=== PATIENT | female | born 1995 | race Caucasian/White ===

== ENCOUNTER 2020-07-20 21:34 | Inpatient (IN) ==
[2020-07-20] MEDS ORDERED: MoRPHine SULFATE 4 MG/ML 1 ML CARP\\VIAL IV STA (23:41)
[2020-07-20] MEDS ORDERED: KETOROLAC TROMETHAMINE 15 MG/ML VIAL IV STA (23:41)
[2020-07-20] MEDS ORDERED: SODIUM CHLORIDE 0.9% 1000ML 1,000 ML IV ONE (23:41)
--- NOTE | 2020-07-20 23:46 | Emergency Department Note ---
Impression & Plan Calculus of proximal right ureter, Hydronephrosis, right ED Provider Note Name: PHIL GUTIERREZ Age: 24 Sex: F Arrives Via: Walk-In Informant: Patient, Mother ED Provider: Toni Castano MD Chief Complaint: Right Flank pain Impression: Calculus of proximal right ureter Hydronephrosis, Right Medical Decision Makin yr old female with remote history of renal colic many years ago arrives with acute right flank pain after vague on and off flank pain and hematuria for the last few weeks. Quite uncomfortable this evening with history and findings disc ussed pros/cons of emergent CT which she agrees to having done. CT with 1.2 cm right proximal ureteral stone and hydro. There is a very low chance she will pass this without intervention. Labs with good renal function, normal WBC, and UA without any obvious signs of infection. Patient is afebrile and thus I feel infection unlikely at this time. Pain controlled with toradol, morphine. Hospitalist will bring in and urology on board with this. Triage/Nursing Notes reviewed by Me Differentials:Renal colic, UTI, appendicitis, diverticulitis, mesenteric ischemia, aortic pathology, infections, inflammatory bowel disease, PUD, biliary pathology, as well as other pathologies. Vital Signs: reviewed and remarkable for no significant abnormalities Interventions: Saline lock, morphine 4mg iv, toradol 15mg iv, nss bolus Labs:Reviewed and remarkable for blood in urine Imaging:[facility] Radiologist interpretation reviewed by me: "CT ABDOMEN & PELVIS Without Contrast: 1.2 cm stone in the proximal right ureter/UPJ. Moderate right hydronephrosis. Mild right perinephric fat stranding. Small nonobstructive left renal stone. No hydronephrosis or ureteral stone on the left. Normal appendix. No bowel obstruction or inflammation. Intrauterine device in appropriate position. Radiologist: Satinder Pena M.D." Consults:Dr Jan HUGHES Hospitalist. Ken Byrd PA-C Gen Surg/Urology Plan: Disposition:Hospitalization. Condition: Good History of Present Illness:24 yr old female arrives for evaluation of right flank pain. Patient with history of renal stones noted on CT scan 4+ years ago. She notes over the last few weeks she has been having intermittent flank pains a nd was noted to have blood in urine last week during urologist visit. There was a plan to get CT non con as outpatient for further evaluation. Tonight at 7pm patient had rapid onset right flank pain. Radiates and slowly moving to right groin. Associated nausea and dry heaves. No fevers, chills, urinary symptoms, vomiting, syncope, rashes, nor other symptoms. Denies trauma, injury, falls. No medications prior to arrival. Nothing makes better nor worse. No inciting incident. ROS: See above HPI for pertinent positives & negatives. A total of 10 systems reviewed and were otherwise negative. Past Medical History:Remote kidney stones Past Surgical History:None Family History:Healthy Social History:Non smoker, from [place] Medications:Multivitamin Allergies:None Vitals:Blood Pressure: 144/103, Pulse 83, RR 19, T 36.9C, O2 99% on RA Physical Exam: GENERAL: Patient is very uncomfortable appearing and in moderate distress. Writhing on bed holding right flank. EYES: No scleral icterus, unremarkable pupils. ENT: Mucous membranes moist, no nasal congestion. NECK: No masses appreciated, nomeningismus, trachea is midline. RESPIRATORY: No dyspnea. Clear to auscultation and equal bilaterally. No wheeze, no rhonchi. CARDIOVASCULAR: Regular rate and rhythm.No murmurs, rubs, gallops appreciated. GASTROINTESTINAL: Abdomen soft, non-tender, no peritonitis.Bowel sounds positive.No masses appreciated. BACK: No midline tenderness, vague right CVA tenderness EXTREMITIES: Normal motion all extremities, no cyanosis, no edema. NEUROLOGIC: Alert and oriented, no acute motor or sensory deficits, no focal weakness, cranial nerves grossly intact. SKIN: No rash, no jaundice, no diaphoresis. PSYCH: Appropriate GCS: 15 ED Course: Times/Reassessments: vastly improved with pain medications Toni Castano MD Past Med/Surg History Medical History (Updated 07/21/20 @ 03:13 by Toni Castano MD) Nephrolithiasis Social History Smoking Status: Never smoker Second Hand Exposure: No; Hx Alcohol Use: Yes Alcohol type: beer Hx Substance Use: No Preferred Language: Tamazight Food Checker Required: No Beliefs That Will Affect Care: None Current Living Situation Comment: apartment with 1 roomate Feels Safe at Home: Yes Assistive Devices: None Allergies Allergies Allergy/AdvReac Type Severity Reaction Status Date / Time No Known Allergies Allergy Unverified 07/21/20 00:47 Home Meds Home Medications Medication Instructions Recorded Confirmed multivit with min-folic acid 1 tab PO DAILY 07/21/20 07/21/20 [Multivitamin Gummies] Results & Data (ED) Vital Signs Vital Signs - 24 hr 07/20/20 21:44 07/21/20 00:16 Temperature 36.9 C Temperature Source Temporal Artery Scan Pulse Rate 83 Respiratory Rate 19 12 Respiratory Effort / Characteristics Non-Labored Respiratory Depth Normal Blood Pressure 144/103 H Blood Pressure Mean 116 Pulse Oximetry 99 100 Oxygen Delivery Method Room Air Room Air Sepsis Recent Fever Within 48 Hours No Sepsis New/Unexplained Change in Mental Status N/A Sepsis Action Taken by Nursing No Action Required Laboratory Data Result diagrams: 07/21/20 00:06 07/21/20 00:06 Lab Results 07/20/20 07/20/20 07/21/20 Range/Units 23:30 23:30 00:06 WBC 9.27 (4.8-10.8) K/uL RBC 4.76 (4.2-5.4) M/uL Hgb 13.9 (12.0-16.0) g/dL Hct 39.7 (37-47) % MCV 83.4 (80-100) fL MCH 29.2 (25-34) pg MCHC 35.0 (32-36) g/dL RDW Std Deviation 38.3 (36.4-46.3) fL RDW Coeff of Umang 12.6 (11.5-14.5) % Plt Count 239 (130-400) K/uL MPV 8.9 (7.4-10.4) fL Immature Gran % (Auto) 0.2 % Neut % (Auto) 66.2 % Lymph % (Auto) 22.9 % Bergen % (Auto) 9.2 % Eos % (Auto) 1.3 % Baso % (Auto) 0.2 % Neut # (Auto) 6.14 (1.4-6.5) K/uL Lymph # (Auto) 2.12 (1.2-3.4) K/uL Bergen # (Auto) 0.85 H (0.11-0.59) K/uL Eos # (Auto) 0.12 (0-0.5) K/uL Baso # (Auto) 0.02 (0-0.2) K/uL Immature Gran # (Auto) 0.02 (0.00-0.02) K/uL Sodium (136-145) mmol/L Potassium (3.5-5.1) mmol/L Chloride (98-107) mmol/L Carbon Dioxide (21-32) mmol/L Anion Gap (3-11) BUN (7-18) mg/dl Creatinine (0.6-1.2) mg/dl Est Cr Clr Drug Dosing ml/min Est GFR ( Amer) ml/min Est GFR (Non-Af Amer) ml/min BUN/Creatinine Ratio (10-20) Glucose (70-99) mg/dl Calcium (8.5-10.1) mg/dl Total Bilirubin (0.2-1) mg/dl Direct Bilirubin (0-0.2) mg/dl AST (15-37) U/L ALT (12-78) U/L Alkaline Phosphatase (45-117) U/L Total Protein (6.4-8.2) gm/dl Albumin (3.4-5.0) gm/dl Lipase (73-393) U/L Urine Color Yellow Urine Appearance Clear (Clear) Urine pH 7.0 (4.5-7.5) Ur Specific Penrose 1.009 (1.000-1.030) Urine Protein 2+ H (Negative) Urine Glucose (UA) Negative (Negative) Urine Ketones Negative (Negative) Urine Blood 2+ H (Negative) Urine Nitrite Negative (Negative) Urine Bilirubin Negative (Negative) Urine Urobilinogen Negative (Negative) Ur Leukocyte Esterase Negative (Negative) Urine WBC (Auto) 1-5 (0-5) /hpf Urine RBC (Auto) 0-4 (0-4) /hpf U Hyaline Cast (Auto) 1-5 (0-5) /lpf U Epithel Cells (Auto) >30 H (0-5) /lpf Urine Bacteria (Auto) Negative (Negative) Urine Test Negative (Negative) COVID-19 Eval Order SARS-CoV-2 (PCR) (Negative) 07/21/20 07/21/20 07/21/20 Range/Units 00:06 00:12 00:12 WBC (4.8-10.8) K/uL RBC (4.2-5.4) M/uL Hgb (12.0-16.0) g/dL Hct (37-47) % MCV (80-100) fL MCH (25-34) pg MCHC (32-36) g/dL RDW Std Deviation (36.4-46.3) fL RDW Coeff of Umang (11.5-14.5) % Plt Count (130-400) K/uL MPV (7.4-10.4) fL Immature Gran % (Auto) % Neut % (Auto) % Lymph % (Auto) % Bergen % (Auto) % Eos % (Auto) % Baso % (Auto) % Neut # (Auto) (1.4-6.5) K/uL Lymph # (Auto) (1.2-3.4) K/uL Bergen # (Auto) (0.11-0.59) K/uL Eos # (Auto) (0-0.5) K/uL Baso # (Auto) (0-0.2) K/uL Immature Gran # (Auto) (0.00-0.02) K/uL Sodium 139 (136-145) mmol/L Potassium 3.4 L (3.5-5.1) mmol/L Chloride 108 H (98-107) mmol/L Carbon Dioxide 25 (21-32) mmol/L Anion Gap 6.0 (3-11) BUN 12 (7-18) mg/dl Creatinine 0.68 (0.6-1.2) mg/dl Est Cr Clr Drug Dosing 121.5 ml/min Est GFR ( Amer) 143.9 ml/min Est GFR (Non-Af Amer) 124.2 ml/min BUN/Creatinine Ratio 17.2 (10-20) Glucose 99 (70-99) mg/dl Calcium 9.3 (8.5-10.1) mg/dl Total Bilirubin 0.4 (0.2-1) mg/dl Direct Bilirubin 0.1 (0-0.2) mg/dl AST 15 (15-37) U/L ALT 17 (12-78) U/L Alkaline Phosphatase 95 (45-117) U/L Total Protein 6.6 (6.4-8.2) gm/dl Albumin 4.1 (3.4-5.0) gm/dl Lipase 105 (73-393) U/L Urine Color Urine Appearance (Clear) Urine pH (4.5-7.5) Ur Specific Penrose (1.000-1.030) Urine Protein (Negative) Urine Glucose (UA) (Negative) Urine Ketones (Negative) Urine Blood (Negative) Urine Nitrite (Negative) Urine Bilirubin (Negative) Urine Urobilinogen (Negative) Ur Leukocyte Esterase (Negative) Urine WBC (Auto) (0-5) /hpf Urine RBC (Auto) (0-4) /hpf U Hyaline Cast (Auto) (0-5) /lpf U Epithel Cells (Auto) (0-5) /lpf Urine Bacteria (Auto) (Negative) Urine Test (Negative) COVID-19 Eval Order Covid19 at [facility] SARS-CoV-2 (PCR) NEGATIVE (Negative) Administered Medications Ceftriaxone Sodium 1,000 mg/ (Dextrose) 50 mls @ 100 mls/hr IV Q24H XAVIER; Protocol Stop: 07/31/20 02:59 Last Admin: 07/21/20 03:11 Dose: 100 mls/hr Documented by: [id number] Lactated Ringer's (Lr) 1,000 mls @ 100 mls/hr IV .Q10H XAVIER Stop: 07/21/20 22:27 Last Infusion: 07/21/20 03:07 Dose: 0 mls/hr Documented by: [id number] Admin: 07/21/20 02:45 Dose: 100 mls/hr Documented by: [id number] Morphine Sulfate (Morphine Sulfate 4 Mg/Ml 1 Ml Carp\\Vial) 4 mg IV Q3H PRN PRN Reason: Pain (6,7,8,9,10) Stop: 08/04/20 01:27 Last Admin: 07/21/20 01:58 Dose: 4 mg Documented by: [id number] Discontinued Medications Sodium Chloride (Nss 1000ml) 1,000 mls @ 999 mls/hr IV .Q1H1M ONE Stop: 07/21/20 00:41 Last Infusion: 07/21/20 00:58 Dose: 0 mls/hr Documented by: [id number] Admin: 07/21/20 00:08 Dose: 999 mls/hr Documented by: [id number] Ketorolac Tromethamine (Ketorolac Tromethamine 15 Mg/Ml Vial) 15 mg IV NOW STA Stop: 07/20/20 23:42 Last Admin: 07/21/20 00:07 Dose: 15 mg Documented by: [id number] Morphine Sulfate (Morphine Sulfate 4 Mg/Ml 1 Ml Carp\\Vial) 4 mg IV NOW STA Stop: 07/20/20 23:42 Last Admin: 07/21/20 00:07 Dose: 4 mg Documented by: [id number] Discharge Plan Visit Data Chief Complaint: Kidney Stone Stated Complaint: BACK PAIN, KIDNEY STONE ED Provider: Toni Castano Discharge Problem: Calculus of proximal right ureter, Hydronephrosis, right Patient Disposition: Admitted As Inpatient Discharge Instructions Interventions: ED Discharge Assessment Last Done: 07/21/20 02:01
[2020-07-20 23:52] LABS: Pregnancy Test, Urine Negative (Negative)
[2020-07-20 23:55] LABS: Appearance Urine Clear (Clear); Bacteria Urine Automated Negative (Negative); Bilirubin Urine Negative (Negative); Blood Urine 2+ (Negative); Color Urine Yellow; Epithelial Cell Urine Auto >30 /lpf (0-5); Glucose Urine UA Negative (Negative); Ketones Urine Negative (Negative); Leukocyte Esterase Urine Negative (Negative); Nitrite Urine Negative (Negative); Protein Urine 2+ (Negative); RBC Urine Automated 0-4 /hpf (0-4); Specific Gravity Urine 1.009 (1.000-1.030); Urobilinogen Urine Negative (Negative)
[2020-07-21 00:26] LABS: Basophils # (auto) 0.02 K/uL (0-0.2); Basophils % (auto) 0.2 %; Eosinophils # (auto) 0.12 K/uL (0-0.5); Eosinophils % (auto) 1.3 %; Hematocrit (blood only) 39.7 % (37-47); Hemoglobin 13.9 g/dL (12.0-16.0); Immature Granulocytes # (auto) 0.02 K/uL (0.00-0.02); Immature Granulocytes % (auto) 0.2 %; Lymphocytes # (auto) 2.12 K/uL (1.2-3.4); Lymphocytes % (auto) 22.9 %; Mean Corpuscular Hemoglobin 29.2 pg (25-34); Mean Corpuscular Volume 83.4 fL (80-100); Mean Platelet Volume 8.9 fL (7.4-10.4); Monocytes # (auto) 0.85 K/uL (0.11-0.59); Monocytes % (auto) 9.2 %; Neutrophils # (auto) 6.14 K/uL (1.4-6.5); Neutrophils % (auto) 66.2 %; Platelet Count 239 K/uL (130-400); RDW Coefficient of Variation 12.6 % (11.5-14.5); RDW Standard Deviation 38.3 fL (36.4-46.3); Red Blood Count 4.76 M/uL (4.2-5.4); White Blood Count 9.27 K/uL (4.8-10.8)
[2020-07-21 00:43] LABS: Albumin Level 4.1 gm/dl (3.4-5.0); BUN Creatinine Ratio 17.2 (10-20); Bilirubin Direct 0.1 mg/dl (0-0.2); Calcium 9.3 mg/dl (8.5-10.1); Creatinine Clr Calc Pharmacy 121.5 ml/min; Est GFR (African American) 143.9 ml/min; Est GFR (Non-African American) 124.2 ml/min; Potassium 3.4 mmol/L (3.5-5.1)
[2020-07-21 00:46] LABS: Bilirubin,Total 0.4 mg/dl (0.2-1); Total Protein 6.6 gm/dl (6.4-8.2)
[2020-07-21] MEDS ORDERED: MoRPHine SULFATE 2 MG/ML CARP IV PRN (01:28)
[2020-07-21] MEDS ORDERED: MoRPHine SULFATE 4 MG/ML 1 ML CARP\\VIAL IV PRN (01:28)
--- NOTE | 2020-07-21 01:31 | Urology Consultation ---
Date of Consultation July 21, 2020 Assessment & Plan (1) Nephrolithiasis: Patient is being admitted to the hospital medical service. We recommend proceeding as follows: Provide analgesics Provide antiemetics Hydrate with IV fluids Due to perinephric fat stranding antibiotics will be administered. Strain all urine saving any kidney stones for proper lab analysis Keep patient n.p.o. for the present time Due to the size of patient's kidney stone it is unlikely that this will pass on its own. Patient be reassessed early in the morning to determine if cystoscopy will be required this admission with timing of such a procedure to be determined. Recommend utilizing SCDs for DVT prevention and avoiding chemical means due to the possibility of procedural intervention. History of Present Illness Reason for Consultation: Nephrolithiasis History of Present Illness This is a 24-year-old female who presented to the [facility] emergency department secondary to right-sided flank pain. Patient notes that she has a history of a kidney stone several years ago which she is passed spontaneously without any urologic intervention. She is unsure which side her kidney stone was on. She notes with her current presentation she has been having on and off right-sided flank pain for several months. She says that the pain is somewhat relieved with the use of a heating pad however throughout the day she developed some worsening right-sided flank pain with some radiation to her abdomen. She denies any fevers, shakes, chills. She denies any hematuria or dysuria. She did have some nausea without any vomiting. Her current pain does not know any provocative factors and was relieved somewhat with pain medicines that were administered in the emergency department. Because of the worsening nature of the pain she did present to the emergency department for further management In the emergency department the patient did have labs and imaging which I dependently reviewed. A CT scan of the abdomen and pelvis showed that she had a 1.2 cm proximal right kidney stone at the right ureteropelvic junction with moderate right hydronephrosis and some perinephric fat stranding. Labs included a CBC where her white blood cell count, hemoglobin, hematocrit, and platelet count were all within normal range. Chemistry profile showed her sodium was 1 39. Potassium was somewhat low at 3.4. Her BUN and creatinine were both noted to be normal. Urinalysis showed 2+ blood but was negative for nitrites leukocyte Estrace or pyuria. A test was noted to be negative and a Covid test was also noted to be negative. At the time of my exam the patient is resting comfortably in bed. Her pain had largely resolved with the medicine that was administered and she was in no distress. Allergies Allergy/AdvReac Type Severity Reaction Status Date / Time No Known Allergies Allergy Unverified 07/21/20 00:47 Home Medications Medication Instructions Recorded Confirmed Type multivit with min-folic acid 1 tab PO DAILY 07/21/20 07/21/20 History [Multivitamin Gummies] Patient History Medical History (Updated 07/21/20 @ 01:33 by Cory Byrd PA-C) Nephrolithiasis Social History Smoking Status: Never smoker Feels Safe at Home: Yes Review of Systems Constitutional: no fever and no chills Eyes: no diplopia Ear, Nose, Mouth, Throat: no ear pain Respiratory: no cough and no dyspnea Cardiovascular: no chest pain Gastrointestinal: + nausea; no abdominal pain and no vomiting Genitourinary: + flank pain (Right sided); no dysuria, no urinary frequency and no hematuria Musculoskeletal: + back pain (Right flank) Integumentary: no rash Neurologic: no generalized weakness Physical Exam Constitutional: well developed and well nourished; no acute distress Eyes: no conjunctival abnormality Wears glasses ENMT: Ears: no hearing impairment Neck: trachea midline Cardiovascular: Rate/Rhythm: regular rate and regular rhythm Gastrointestinal (Abdomen): Percussion/Palpation: abdomen soft; abdomen nontender Musculoskeletal: No calf tenderness Skin: no rashes, warm and dry Neurologic: moves all extremities Psychiatric: A+Ox3, euthymic affect Genitourinary: + CVA tenderness (Minimal pain on right side with percussion) Results & Data ([facility]) Vital Signs (Past 12 Hours) Vital Signs Temp Pulse Resp BP Pulse Ox 07/21/20 00:16 12 100 07/20/20 21:44 36.9 C 83 19 144/103 H 99 PG Care Time/CCT Total # of Minutes Spent Total Time Spent with Patient: Total time spent is greater than 50% in food service coordinator rdination of care (as documented) at patient's floor/unit and/or counseling patient: Coding Level of Care Code 61012 Inpt Consult Level 5 Diagnoses Nephrolithiasis N20.0
--- NOTE | 2020-07-21 01:33 | History & Physical Report ---
Date of Service July 21, 2020 Assessment & Plan (1) Nephrolithiasis: Patient is a very pleasant 24 year old female with PMHx nephrolithiasis that presents with chief complaint of ongoing lower R back/flank pain since November 2019 that has been progressively worsening until 7PM of day of admission where she states the pain became a 9/10 and made her nauseous. Nephrolithiasis -CT Ab/Pelv noting a 1.2cm stone in the proximal right ureter/UPJ in addition to mild R hydronephrosis and mild R perinephric fat stranding. A nonobstructive small L renal stone was also noted. -Urology consulted in ED, evaluated patient at bedside. Suspect patient will likely need intervention for passing of the stone due to it's size. -Will keep patient NPO -Lr 100ml/hr while NPO -Zofran PRN nausea -Toradol PRN and Morphine PRN for pain -Due to perinephric fat stranding will start Ceftriaxone IV at this time. -Strain all urine Dispo: Med/Surg for pain control, hydration FEN: NPO, LR 100ml/hr DVT: SCDs Code: Full History of Present Illness Chief Complaint: r back pain Primary Care Provider: NO PCP Patient is a very pleasant 24 year old female with PMHx nephrolithiasis that presents with chief complaint of ongoing lower R back/flank pain since November 2019 that has been progressively worsening until 7PM of day of admission where she states the pain became a 9/10 and made her nauseous. She notes that she has been having this ongoing pain since November 2019, however, it was manageable with heat packs and OTC's. She initially thought it was related to her IUD and was evaluated by her OBGYN. She had passed a stone 4 years ago and actually saw her Urologist at that time early last week with plans for having a scan completed, but patient notes her pain was too severe today to wait until then. Currently she notes her pain is a 2/10, but can rise to a 9/10 and comes in waves. She describes the pain as a dull ache into a sharp pain that is located primarily near her R flank and will wrap around to her groin. She otherwise has had some nausea today, but no vomiting. No fever, chills SOB, chest pain, vomiting, diarrhea, headache. Notes last sexual encounter was 3 days ago with her partner of 2 years and has no concerns in regards to STDs. Med Hx: Previous nephrolithiasis Surg Hx: None Soc Hx: No tobacco or illicit drug use. Has 1-2 drinks/week. Allergies Allergy/AdvReac Type Severity Reaction Status Date / Time No Known Allergies Allergy Unverified 07/21/20 00:47 Home Medications Medication Instructions Recorded Confirmed Type multivit with min-folic acid 1 tab PO DAILY 07/21/20 07/21/20 History [Multivitamin Gummies] Past Med/Surg History Medical History (Updated 07/21/20 @ 03:13 by Toni Castano MD) Nephrolithiasis Social History Smoking Status: Never smoker Second Hand Exposure: No; Hx Alcohol Use: Yes Alcohol type: beer Hx Substance Use: No Preferred Language: Portuguese Sales Producer Required: No Beliefs That Will Affect Care: None Current Living Situation Comment: apartment with 1 roomate Feels Safe at Home: Yes Assistive Devices: None Review of Systems Review of Systems: All systems reviewed & are unremarkable except as noted in Subjective Physical Exam Constitutional: WD/WN, vitals as above Eyes: PERRL, conjunctivae normal, anicteric sclerae ENMT: external ear and nose normal, oropharynx normal Neck: trachea midline, no thyromegaly Respiratory: normal respiratory effort, lungs clear to auscultation Gastrointestinal (Abdomen): normal bowel sounds, soft, nontender, no hepatosplenomegaly Musculoskeletal: no cyanosis or clubbing, extremities motor strength 5/5 Skin: no rashes, warm and dry Neurologic: moves all extremities Psychiatric: A+Ox3, euthymic affect Genitourinary: + CVA tenderness (R, minimal at this time ) Results & Data Results & Data ([facility]) Vital Signs (Past 12 Hours) Vital Signs Temp Pulse Resp BP Pulse Ox 07/21/20 00:16 12 100 07/20/20 21:44 36.9 C 83 19 144/103 H 99 Code Status & VTE Plan VTE Prophylaxis Plan VTE Prophylaxis will be ordered: Yes Supervising Physician Co-Signing Physician Notes Patient seen and examined, chart reviewed, case discussed with Dr. Carrion and I agree with his assessment and plan as above. Briefly, patient is a 24yo female presenting with obstructing renal stone On exam she is afebrile, HD stable, NAD Nontoxic in appearance Remainder of exam unremarkable Labs and images reviewed. No leukocytosis UA with hematuria Assessment/Plan: -Pain and nausea control -IVF -Ceftriaxone -Urology consultation appreciated. Will keep NPO for intervention in AM Resident Activity Tracking Resident Involvement: Resident Care Provided Care Provided: Adult Hospital Medicine
--- NOTE | 2020-07-21 01:57 | Billing Data ---
Date of Service July 21, 2020 Coding Level of Care Code 11168 Initial Inpt Care Lvl 2
[2020-07-21] MEDS ORDERED: ONDANSETRON INJ 2 MG/ML 2 ML VIAL IV PRN (02:28)
[2020-07-21] MEDS ORDERED: LACTATED RINGER'S 1,000 ML IV SCH (02:28)
[2020-07-21] MEDS: cefTRIAXone SODIUM 1,000 MG in DEXTROSE 5% 50 ML IV SCH (03:11)
--- NOTE | 2020-07-21 08:28 | Hospitalist Progress Note ---
Date of Service July 21, 2020 Assessment & Plan (1) Nephrolithiasis: Patient is a very pleasant 24 year old female with PMHx nephrolithiasis that presents with chief complaint of ongoing lower R back/flank pain since November 2019 that has been progressively worsening until 7PM of day of admission where she states the pain became a 9/10 and made her nauseous. Nephrolithiasis CT Ab/Pelv noting a 1.2cm stone in the proximal right ureter/UPJ in addition to mild R hydronephrosis and mild R perinephric fat stranding. A nonobstructive small L renal stone was also noted. Urology consulted in ED, evaluated patient at bedside. Suspect patient will likely need intervention for passing of the stone due to it's size. -Urology consulted following recommendations -NPO after midnight for cystoscopy and stent placement scheduled for 07/22 -Lr 100ml/hr while NPO -Zofran PRN nausea -Toradol PRN and Morphine PRN for pain -IV ceftriaxone -Strain all urine Dispo: Med/Surg for pain control, hydration FEN: NPO, LR 100ml/hr DVT: SCDs Code: Full Admission and Anticipated Discharge Date Admission Date: July 21, 2020 Subjective Patient lying in bed this morning in no acute distress. Patient relate a history similar to that described in the H&P. Patient reports her pain has been going on since November, she feels no superficial pain, and is negative CVA tenderness as a result she thought her pain was secondary to an IUD. After evaluation by RESIDENTIAL PROGRAM MANAGER it was determined that her pain was not related to that. She had previously seen a urologist who had scheduled an outpatient CT scan, however her pain acutely worsened resulting in her presentation the emergency department. In the emergency department she was noted to have a 1.2 cm stone and urology was consulted. She did well overnight experiencing minimal pain, currently her pain is well controlled she is tolerating her diet, reports voiding and stooling. Acute concerns relate to upcoming surgical procedure Physical Exam Physical Exam: General: No acute distress HEENT: Normocephalic atraumatic Neck: No significant lymphadenopathy, trachea midline, normal to visual inspection Cardiac: Regular rate and rhythm, normal S1, normal S2, I did not appreciated any significant murmurs rubs or gallops, I did not appreciate any significant pedal edema, No calf tenderness, capillary refill is less than 3 seconds Respiratory: Clear to auscultation bilaterally with symmetrical chest rise, I did not appreciate any significant wheezes, rales, rhonchi, no increased work of breathing GI: Normal bowel sounds, soft, nontender in all 4 quadrants, nondistended MSK: No sensory or motor changes, moves all extremities without issue, extremities are warm and well-perfused Skin: [place], clean, dry, intact. Neuro: Alert and oriented x4 Psych: Calm, cooperative, logical thought process Results & Data Results & Data ([facility]) Vital Signs (Past 12 Hours) Vital Signs Temp Pulse Pulse Pulse Resp BP BP 07/21/20 08:05 36.7 C 75 16 103/66 07/21/20 07:46 36.7 C 72 14 103/63 07/21/20 02:34 36.8 C 73 16 116/74 07/21/20 02:02 97 H 12 125/75 07/21/20 02:01 92 H 14 122/68 07/21/20 00:16 12 07/20/20 21:44 36.9 C 83 19 144/103 H Pulse Ox 07/21/20 08:05 99 07/21/20 07:46 98 07/21/20 02:34 100 07/21/20 02:02 98 07/21/20 02:01 98 07/21/20 00:16 100 07/20/20 21:44 99 Laboratory Results 07/21/20 07/21/20 07/21/20 Range/Units 00:12 00:12 00:06 WBC (4.8-10.8) K/uL RBC (4.2-5.4) M/uL Hgb (12.0-16.0) g/dL Hct (37-47) % MCV (80-100) fL MCH (25-34) pg MCHC (32-36) g/dL RDW Std Deviation (36.4-46.3) fL RDW Coeff of Umang (11.5-14.5) % Plt Count (130-400) K/uL MPV (7.4-10.4) fL Immature Gran % (Auto) % Neut % (Auto) % Lymph % (Auto) % [place] % (Auto) % Eos % (Auto) % Baso % (Auto) % Neut # (Auto) (1.4-6.5) K/uL Lymph # (Auto) (1.2-3.4) K/uL [place] # (Auto) (0.11-0.59) K/uL Eos # (Auto) (0-0.5) K/uL Baso # (Auto) (0-0.2) K/uL Immature Gran # (Auto) (0.00-0.02) K/uL Sodium 139 (136-145) mmol/L Potassium 3.4 L (3.5-5.1) mmol/L Chloride 108 H (98-107) mmol/L Carbon Dioxide 25 (21-32) mmol/L Anion Gap 6.0 (3-11) BUN 12 (7-18) mg/dl Creatinine 0.68 (0.6-1.2) mg/dl Est Cr Clr Drug Dosing 121.5 ml/min Est GFR ( Amer) 143.9 ml/min Est GFR (Non-Af Amer) 124.2 ml/min BUN/Creatinine Ratio 17.2 (10-20) Glucose 99 (70-99) mg/dl Calcium 9.3 (8.5-10.1) mg/dl Total Bilirubin 0.4 (0.2-1) mg/dl Direct Bilirubin 0.1 (0-0.2) mg/dl AST 15 (15-37) U/L ALT 17 (12-78) U/L Alkaline Phosphatase 95 (45-117) U/L Total Protein 6.6 (6.4-8.2) gm/dl Albumin 4.1 (3.4-5.0) gm/dl Lipase 105 (73-393) U/L Urine Color Urine Appearance (Clear) Urine pH (4.5-7.5) Ur Specific [place] (1.000-1.030) Urine Protein (Negative) Urine Glucose (UA) (Negative) Urine Ketones (Negative) Urine Blood (Negative) Urine Nitrite (Negative) Urine Bilirubin (Negative) Urine Urobilinogen (Negative) Ur Leukocyte Esterase (Negative) Urine WBC (Auto) (0-5) /hpf Urine RBC (Auto) (0-4) /hpf U Hyaline Cast (Auto) (0-5) /lpf U Epithel Cells (Auto) (0-5) /lpf Urine Bacteria (Auto) (Negative) Urine Test (Negative) COVID-19 Eval Order Covid19 at [facility] SARS-CoV-2 (PCR) NEGATIVE (Negative) 07/21/20 07/20/20 07/20/20 Range/Units 00:06 23:30 23:30 WBC 9.27 (4.8-10.8) K/uL RBC 4.76 (4.2-5.4) M/uL Hgb 13.9 (12.0-16.0) g/dL Hct 39.7 (37-47) % MCV 83.4 (80-100) fL MCH 29.2 (25-34) pg MCHC 35.0 (32-36) g/dL RDW Std Deviation 38.3 (36.4-46.3) fL RDW Coeff of Umang 12.6 (11.5-14.5) % Plt Count 239 (130-400) K/uL MPV 8.9 (7.4-10.4) fL Immature Gran % (Auto) 0.2 % Neut % (Auto) 66.2 % Lymph % (Auto) 22.9 % [place] % (Auto) 9.2 % Eos % (Auto) 1.3 % Baso % (Auto) 0.2 % Neut # (Auto) 6.14 (1.4-6.5) K/uL Lymph # (Auto) 2.12 (1.2-3.4) K/uL [place] # (Auto) 0.85 H (0.11-0.59) K/uL Eos # (Auto) 0.12 (0-0.5) K/uL Baso # (Auto) 0.02 (0-0.2) K/uL Immature Gran # (Auto) 0.02 (0.00-0.02) K/uL Sodium (136-145) mmol/L Potassium (3.5-5.1) mmol/L Chloride (98-107) mmol/L Carbon Dioxide (21-32) mmol/L Anion Gap (3-11) BUN (7-18) mg/dl Creatinine (0.6-1.2) mg/dl Est Cr Clr Drug Dosing ml/min Est GFR ( Amer) ml/min Est GFR (Non-Af Amer) ml/min BUN/Creatinine Ratio (10-20) Glucose (70-99) mg/dl Calcium (8.5-10.1) mg/dl Total Bilirubin (0.2-1) mg/dl Direct Bilirubin (0-0.2) mg/dl AST (15-37) U/L ALT (12-78) U/L Alkaline Phosphatase (45-117) U/L Total Protein (6.4-8.2) gm/dl Albumin (3.4-5.0) gm/dl Lipase (73-393) U/L Urine Color Yellow Urine Appearance Clear (Clear) Urine pH 7.0 (4.5-7.5) Ur Specific [place] 1.009 (1.000-1.030) Urine Protein 2+ H (Negative) Urine Glucose (UA) Negative (Negative) Urine Ketones Negative (Negative) Urine Blood 2+ H (Negative) Urine Nitrite Negative (Negative) Urine Bilirubin Negative (Negative) Urine Urobilinogen Negative (Negative) Ur Leukocyte Esterase Negative (Negative) Urine WBC (Auto) 1-5 (0-5) /hpf Urine RBC (Auto) 0-4 (0-4) /hpf U Hyaline Cast (Auto) 1-5 (0-5) /lpf U Epithel Cells (Auto) >30 H (0-5) /lpf Urine Bacteria (Auto) Negative (Negative) Urine Test Negative (Negative) COVID-19 Eval Order SARS-CoV-2 (PCR) (Negative) Medications Administered Current Inpatient Medications Ceftriaxone Sodium 1,000 mg/ (Dextrose) 50 mls @ 100 mls/hr IV Q24H XAVIER; Protocol Stop: 07/31/20 02:59 Last Infusion: 07/21/20 03:45 Dose: Infused Documented by: Lactated Ringer's (Lr) 1,000 mls @ 100 mls/hr IV .Q10H XAVIER Stop: 07/21/20 22:27 Last Infusion: 07/21/20 03:45 Dose: 100 mls/hr Documented by: Ketorolac Tromethamine (Ketorolac Tromethamine 15 Mg/Ml Vial) 15 mg IV Q6H PRN PRN Reason: Pain & Pre PT Stop: 07/26/20 01:27 Morphine Sulfate (Morphine Sulfate 2 Mg/Ml Carp) 2 mg IV Q3H PRN PRN Reason: Pain (1,2,3,4,5) & Pre PT Stop: 08/04/20 01:27 Morphine Sulfate (Morphine Sulfate 4 Mg/Ml 1 Ml Carp\Vial) 4 mg IV Q3H PRN PRN Reason: Pain (6,7,8,9,10) Stop: 08/04/20 01:27 Last Admin: 07/21/20 01:58 Dose: 4 mg Documented by: Ondansetron HCl (Ondansetron Inj 2 Mg/Ml 2 Ml Vial) 4 mg IV Q6H PRN PRN Reason: Nausea Stop: 08/20/20 02:27 Resident Activity Tracking Resident Involvement: Resident Care Provided Care Provided: Adult Hospital Medicine
[2020-07-21] MEDS ORDERED: POTASSIUM CHLORIDE CRTAB 20 MEQ TABCR PO SCH (08:30)
--- NOTE | 2020-07-21 08:51 | XRay Report ---
KUB HISTORY: Follow up study in a patient with a right ureteral calculus right ureteral stone COMPARISON: CT abdomen and pelvis 07/20/2020 FINDINGS: Nonobstructive bowel gas pattern. Moderate fecal retention of the right hemicolon. 1.2 cm calculus of the right ureteropelvic junction at the level of L3 is in unchanged positioning. Left nep hrolithiasis measuring up to approximately 5 mm redemonstrated. IUD of the mid pelvis. No pneumoperit oneum or pneumatosis. No fracture. IMPRESSION: 1. Unchanged positioning of the 1.2 cm calculus of the right ureteropelvic junction at the level of L 3. 2. Left nephrolithiasis. ACT 112: Negative or not required by law. The above report was generated using voice recognition software. It may contain grammatical, syntax o r spelling errors. Electronically signed by: Osman Miguel M.D. 07/21/2020 8:50 AM
--- NOTE | 2020-07-21 09:06 | CT Scan Report ---
CT SCAN OF THE ABDOMEN AND PELVIS WITHOUT CONTRAST CLINICAL HISTORY: right flank pain, remote renal colic history COMPARISON STUDY: No previous studies for comparison. TECHNIQUE: CT scan of the abdomen and pelvis was performed from the lung bases to the proximal femurs . Images are reviewed in the axial, sagittal, and coronal planes. IV contrast was not administered fo r this examination. A dose lowering technique was utilized adhering to the principles of ALARA. CT DOSE: 519.11 mGy.cm FINDINGS: Lower chest: The heart is normal in size and configuration, without pericardial effusion. The lung ba ses and pleural spaces are clear. Liver: The unenhanced liver is normal in size, contour, and attenuation. There is no intrahepatic ellyn iary ductal dilatation. Gallbladder: Unremarkable. Spleen: Normal in size and attenuation. Pancreas: Unremarkable. Adrenal glands: Unremarkable. Kidneys: Moderate hydronephrosis is seen on the right with 1.2 cm obstructive calculus within proximal right u reter. 4 mm calculus is seen within left renal pelvis without evidence of hydronephrosis. Distal aspect of r ight and left ureters are not well visualized. Evaluation is limited due to small amount of intra-abd ominal fat and lack of contrast. Bowel: The small bowel and colon are normal in course and caliber. Appendix is not well seen. Moderat e amount of stool is seen within ascending colon. Peritoneum: There is no intraperitoneal free air or abdominal ascites. Vasculature: The abdominal aorta is normal in course and caliber. Adenopathy: No retroperitoneal lymphadenopathy seen. Multiple small mesenteric lymph nodes are seen, measuring less than 1 cm in short axis and considered nonpathological by CT size criteria. Pelvic viscera: Urinary bladder is fluid-filled. Uterus shows normal CT appearance on this nonenhance d exam. Intrauterine device is seen. Skeletal structures: No evidence of degenerative changes. Few punctate sclerotic lesion within the ri ght iliac bone might represent enostosis. IMPRESSION: 1. Bilateral nephrolithiasis, nonobstructive on the left. 1.2 obstructive calculus within proximal r ight ureter associated with moderate hydronephrosis and hydroureter on the right. ACT 112: Negative or not required by law. The above report was generated using voice recognition software. It may contain grammatical, syntax o r spelling errors. Electronically signed by: Luciana Shaikh DO 07/21/2020 9:04 AM
--- NOTE | 2020-07-21 09:49 | Urology Progress Note ---
Date of Service July 21, 2020 Assessment & Plan (1) Hydronephrosis, right: (2) Calculus of proximal right ureter: 24 yo F admitted for right flank pain secondary to 1.2 cm right proximal ureteral calculus and moderate right hydronephrosis. - Afebrile, VSS, creatinine and WBC within normal limits - UA not suggestive of infection, no urine culture collected/pending. On IV Ceftriaxone since admission - Pain is tolerable at this time - KUB today shows good visualization of right proximal ureteral stone - Reviewed and discussed all surgical options including stent placement later today with possible outpatient ESWL on Sunday vs discharge to home with outpatient ESWL if pain is controlled vs ureteroscopy, possible stone treatment, and stent placement tomorrow while inpatient - She elects to proceed with ureteroscopy, possible stone treatment and stent placement tomorrow - will add to OR schedule - Expected clinical course reviewed, all questions answered - Okay to give diet back today and make NPO at NC - discussed with hospital medicine service - Continue prn pain management and supportive care - Please consult our service urgently if patient develops fever >101F, intractable pain or nausea, as this will necessitate urgent surgical intervention. We will continue to monitor closely with primary service. Admission and Anticipated Discharge Date Admission Date: July 21, 2020 Supervising Physician Co-Signing Physician Notes Pt and mother seen and she is comfortable . Answered questions regarding ureteroscopy and laser lithotripsy including risks and post op scenarios . Advised nephrology consult post op for stone prevention Subjective Awake, alert and resting in bed. She continues to have intermittent right flank pain, notes it is worse in the evenings. Reports pain is 4/10 at present. Last utilized pain medication - morphine @0200. Voiding without difficulty, no dysuria or hematuria. Occasional nausea, no vomiting. No fever or chills. Denies family history of stones. She passed a kidney stone in high school. Chart review: Afebrile, VSS, creatinine 0.68, WBC 9.27, Hgb 13.9, on IV Ceftriaxone. She is NPO. No additional concerns today. Review of Systems Constitutional: as per Subjective / HPI Ear, Nose, Mouth, Throat: no problem reported Respiratory: no dyspnea Cardiovascular: no chest pain Gastrointestinal: as per Subjective / HPI Genitourinary: as per Subjective / HPI Musculoskeletal: no problem reported Physical Exam Constitutional: well developed and well nourished; no acute distress and not ill appearing Eyes: no scleral abnormality Neck: normal visual inspection Respiratory: normal respiratory effort and able to speak in complete sentences; no respiratory distress and no labored breathing Cardiovascular: Extremities: no calf tenderness and no pedal edema Gastrointestinal (Abdomen): Inspection/Auscultation: abdomen normal to inspection; abdomen not distended Percussion/Palpation: abdomen soft; abdomen nontender and no guarding Musculoskeletal: Head/Neck/Chest: normocephalic and head atraumatic Skin: no rashes, warm and dry Neurologic: moves all extremities and awake Psychiatric: A+Ox3, euthymic affect Genitourinary: no CVA tenderness Results & Data ([facility]) Vital Signs (Past 12 Hours) Vital Signs Temp Pulse Pulse Pulse Resp BP BP 07/21/20 08:05 36.7 C 75 16 103/66 07/21/20 07:46 36.7 C 72 14 103/63 07/21/20 02:34 36.8 C 73 16 116/74 07/21/20 02:02 97 H 12 125/75 07/21/20 02:01 92 H 14 122/68 07/21/20 00:16 12 Pulse Ox 07/21/20 08:05 99 07/21/20 07:46 98 07/21/20 02:34 100 07/21/20 02:02 98 07/21/20 02:01 98 07/21/20 00:16 100 PG Care Time/CCT Total # of Minutes Spent Total Time Spent with Patient: Total time spent is greater than 50% in coordination of care (as documented) at patient's floor/unit and/or counseling patient: Coding Level of Care Code 11480 Subseq Hosp Care Lvl 2 Diagnoses Hydronephrosis, right N13.30 Calculus of proximal right ureter N20.1
[2020-07-21] MEDS: KETOROLAC TROMETHAMINE 15 MG/ML VIAL IV PRN (18:04)
[2020-07-22] MEDS: LACTATED RINGER'S 1,000 ML IV SCH ×2 (00:27→10:10)
[2020-07-22] MEDS: cefTRIAXone SODIUM 1,000 MG in DEXTROSE 5% 50 ML IV SCH (05:16)
--- NOTE | 2020-07-22 07:26 | Urology Progress Note ---
Date of Service July 22, 2020 Assessment & Plan (1) Hydronephrosis, right: (2) Calculus of proximal right ureter: 24 yo F admitted for right flank pain secondary to 1.2 cm right proximal ureteral calculus and moderate right hydronephrosis. - Afebrile, VSS, no new labs today at time of visit, creatinine and WBC within normal limits on 07/21 - She wishes to proceed with surgical intervention today - Keep NPO for procedure - Continue prn pain management and supportive care - Findings reviewed with Dr. Alfaro. Given her moderate hydronephrosis and pain in the context of an obstructing 1.2 cm right proximal ureteral stone, will proceed with OR for cystoscopy, right ureteronephroscopy, possible stone treatment/stent placement depending on findings. - Risks and benefits to be reviewed with patient by Dr. Alfaro. OR notified. COVID testing and test negative. - Will cover with scheduled IV Ceftriaxone preoperatively. Admission and Anticipated Discharge Date Admission Date: July 21, 2020 Subjective Patient resting in bed. No issues overnight. Offers no complaints at this time. No pain at present. Utilized Ketorolac yesterday evening @1800. Voiding without difficulty. No dysuria or hematuria. No nausea or vomiting. No fever or chills. NPO since midnight. Chart review: Afebrile, VSS, no new labs at time of visit. On IV Ceftriaxone. No additional concerns today. Review of Systems Constitutional: as per Subjective / HPI Respiratory: no dyspnea Cardiovascular: no chest pain Gastrointestinal: as per Subjective / HPI Genitourinary: as per Subjective / HPI Physical Exam Constitutional: well developed and well nourished; no acute distress and not ill appearing Eyes: no scleral abnormality Neck: normal visual inspection Respiratory: normal respiratory effort and able to speak in complete sentences; no respiratory distress and no labored breathing Cardiovascular: Extremities: no pedal edema Gastrointestinal (Abdomen): Inspection/Auscultation: abdomen normal to inspe ction; abdomen not distended Percussion/Palpation: abdomen soft; abdomen nontender and no guarding Musculoskeletal: Head/Neck/Chest: normocephalic and head atraumatic Extremities: extremities normal to inspection Skin: no rashes, warm and dry Neurologic: moves all extremities and awake Psychiatric: A+Ox3, euthymic affect Genitourinary: no CVA tenderness Results & Data ([facility]) Vital Signs (Past 12 Hours) Vital Signs Temp Pulse Resp BP BP Pulse Ox 07/22/20 07:13 36.7 C 73 18 113/73 98 07/21/20 23:00 36.7 C 54 L 16 99/66 L 99 PG Care Time/CCT Total # of Minutes Spent Total Time Spent with Patient: Total time spent is greater than 50% in coordination of care (as documented) at patient's floor/unit and/or counseling patient: Coding Level of Care Code 59106 Subseq Hosp Care Lvl 2 Diagnoses Hydronephrosis, right N13.30 Calculus of proximal right ureter N20.1
--- NOTE | 2020-07-22 07:40 | Hospitalist Progress Note ---
Date of Service July 22, 2020 Assessment & Plan (1) Nephrolithiasis: Patient is a very pleasant 24 year old female with PMHx nephrolithiasis that presents with chief complaint of ongoing lower R back/flank pain since November 2019 that has been progressively worsening until 7PM of day of admission where she states the pain became a 9/10 and made her nauseous. Nephrolithiasis CT Ab/Pelv noting a 1.2cm stone in the proximal right ureter/UPJ in addition to mild R hydronephrosis and mild R perinephric fat stranding. A nonobstructive small L renal stone was also noted. Urology consulted in ED, evaluated patient at bedside. Suspect patient will likely need intervention for passing of the stone due to it's size. -Urology consulted following recommendations -NPO after midnight for cystoscopy and stent placement scheduled for 07/22 -Lr 100ml/hr while NPO -Zofran PRN nausea -Toradol PRN and Morphine PRN for pain -IV ceftriaxone -Strain all urine Dispo: Med/Surg for pain control, hydration FEN: NPO, LR 100ml/hr DVT: SCDs Code: Full Admission and Anticipated Discharge Date Admission Date: July 21, 2020 Results & Data Results & Data ([facility]) Vital Signs (Past 12 Hours) Vital Signs Temp Pulse Resp BP BP Pulse Ox 07/22/20 07:13 36.7 C 73 18 113/73 98 07/21/20 23:00 36.7 C 54 L 16 99/66 L 99
--- NOTE | 2020-07-22 10:39 | Discharge Summary ---
Date of Service July 22, 2020 Admission HPI Per Admitting Provider Patient is a very pleasant 24 year old female with PMHx nephrolithiasis that presents with chief complaint of ongoing lower R back/flank pain since November 2019 that has been progressively worsening until 7PM of day of admission where she states the pain became a 9/10 and made her nauseous. She notes that she has been having this ongoing pain since November 2019, however, it was manageable with heat packs and OTC's. She initially thought it was related to her IUD and was evaluated by her OBGYN. She had passed a stone 4 years ago and actually saw her Urologist at that time early last week with plans for having a scan completed, but patient notes her pain was too severe today to wait until then. Currently she notes her pain is a 2/10, but can rise to a 9/10 and comes in waves. She describes the pain as a dull ache into a sharp pain that is located primarily near her R flank and will wrap around to her groin. She otherwise has had some nausea today, but no vomiting. No fever, chills SOB, chest pain, vomiting, diarrhea, headache. Notes last sexual encounter was 3 days ago with her partner of 2 years and has no concerns in regards to STDs. Med Hx: Previous nephrolithiasis Surg Hx: None Soc Hx: No tobacco or illicit drug use. Has 1-2 drinks/week. Admission Exam Per Admitting Provider Constitutional: WD/WN, vitals as above Eyes: PERRL, conjunctivae normal, anicteric sclerae ENMT: external ear and nose normal, oropharynx normal Neck: trachea midline, no thyromegaly Respiratory: normal respiratory effort, lungs clear to auscultation Gastrointestinal (Abdomen): normal bowel sounds, soft, nontender, no hepatosplenomegaly Musculoskeletal: no cyanosis or clubbing, extremities motor strength 5/5 Skin: no rashes, warm and dry Neurologic: moves all extremities Psychiatric: A+Ox3, euthymic affect Genitourinary: + CVA tenderness (R, minimal at this time ) Principal Diagnosis Nephrolithiasis Discharge Exam General: No acute distress HEENT: Normocephalic atraumatic Neck: No significant lymphadenopathy, trachea midline, normal to visual inspection Cardiac: Regular rate and rhythm, normal S1, normal S2, I did not appreciated any significant murmurs rubs or gallops, I did not appreciate any significant pedal edema, No calf tenderness, capillary refill is less than 3 seconds Respiratory: Clear to auscultation bilaterally with symmetrical chest rise, I did not appreciate any significant wheezes, rales, rhonchi, no increased work of breathing GI: Normal bowel sounds, soft, nontender in all 4 quadrants, nondistended MSK: No sensory or motor changes, moves all extremities without issue, extremities are warm and well-perfused Skin: [place], clean, dry, intact. Neuro: Alert and oriented x4 Psych: Calm, cooperative, logical thought process Discharge Data Allergies Allergy/AdvReac Type Severity Reaction Status Date / Time No Known Allergies Allergy Unverified 07/21/20 00:47 Consultations 07/21/20 00:53 Consult Urology Routine 07/21/20 00:56 ED Decision to Admit Stat Procedures Performed Operation Date: 07/22/20 12:45 <No data on this case meets the specified criteria> Ordered Studies 07/20/20 23:41 CT abd pelvis wo con Urgent 07/22/20 12:45 FL retrograde includes kub Routine Hospital Course (1) Nephrolithiasis: Patient is a very pleasant 24 year old female with PMHx nephrolithiasis that presents with chief complaint of ongoing lower R back/flank pain since November 2019 that has been progressively worsening until 7PM of day of admission where she states the pain became a 9/10 and made her nauseous. Nephrolithiasis CT Ab/Pelv noting a 1.2cm stone in the proximal right ureter/UPJ in addition to mild R hydronephrosis and mild R perinephric fat stranding. A nonobstructive small L renal stone was also noted. Urology consulted in ED, evaluated patient at bedside. Patient was started on ceftriaxone and provided analgesia and monitored for the following day. On 07/22 she underwent successful cystoscopy with stent placement and destruction of the stone. The patient tolerated the procedure well and was subsequently discharged to complete an outpatient regimen of and for analgesia. Total Time Total Time Spent Total Time Spent (In Minutes): 42 Discharge Plan Discharge Items Patient Disposition: Home - Self-Care Reason For Visit: NEPHROLITHIASIS Discharge Diagnosis: Nephrolithiasis Activity: Resume your previous activity Non-emergency contact: Urologist Call non-emergency contact if: you have any medication questions, your pain is worsening and your temperature is above 101.5 Follow-up/Referrals: PCP,NO [Primary Care Provider] - Diet: Regular Addtl Attending Provider Instructions: Care instructions: You were admitted to [facility] for treatment of kidney stones. While in the hospital you were provided pain medication and IV hydration. You were evaluated by urology who felt that required surgery to assist with removal of the stone. You tolerated the surgery well and were subsequently discharged. As we discussed prior to discharge, should the discomfort of the stent become unbearable throughout the weekend, or you feel comfortable, you are free to remove the stents by firmly pulling on the string until the entire stent is removed. On discharge please follow-up with your urologist at your scheduled appointment. Additionally please take the following medications -Keflex (cephalexin) 500 mg 3 times daily. -Take scheduled Tylenol 1 g every 8 hours until follow-up with your urologist or stent removal, take as needed Advil in between Tylenol doses -Take oxybutynin 1 pill/day until follow-up with your urologist or stent removal -Take Pyridium 1 pill every 8 hours as needed for bladder/urinary discomfort, this is the medication that we discussed may turn your secretions red These [facility] on [address]. If you have not had a recent comprehensive physical exam please follow-up with your primary care provider at your earliest convenience. A discharge summary will be sent to your primary care physician to ensure continuity of care. Please bring this discharge summary with you to your next office appointment so that your provider can review it at that time. Follow-up appointments: - Keep all your follow-up appointments as already scheduled. If you cannot make an appointment, notify your provider. - Please call to request a follow-up appointment with your primary care physician within one week of discharge. Please let us know if you are unable to obtain an appointment Medications: - Your medication list has been reviewed and reconciled upon discharge to ensure accuracy and continuity of care. - You are provided with a list of all your current medications at this time. Please review this list closely and make note of any changes. - Please take all of your medications exactly as prescribed. - Tell your primary care provider if you cannot afford your medications. - Call your primary care provider if you are having any side effects or any other problems. - Call your primary care provider before taking any over the counter medications or supplements, including herbals and vitamins, because some of these may interact with your current medications and/or make your symptoms worse. Symptoms: Please call your primary care provider for symptoms including, but not limited to: fevers (temperatures greater than 100.4), chills, intractable nausea or vomiting, diarrhea, rash, shortness of breath, bleeding, pain, or if you experience any worsening of the symptoms that brought you to the hospital. For EMERGENCY and VERY SERIOUS health-related issues, such as chest pain, shortness of breath, or sudden onset of the symptoms that brought you to the hospital, you may need to call 911 or go directly to the Emergency Room It has been our privilege to take care of you during your hospital stay. And Above All Else Feel Better! Best Wishes, Adam Montoya MD PGY2 Resident, Family & Community Medicine [facility] Residency at [facility] - [address], [address] : [place] [address] Pending Studies at Discharge: No Stand-Alone Forms: My [facility], Smoking Cessation Medications and DC Order Prescriptions: New phenazopyridine [Pyridium] 200 mg tablet 200 mg PO Q8H PRN (Reason: pain) 7 Days Qty: 21 RF: 0 oxybutynin chloride 5 mg tablet extended release 24hr 5 mg PO DAILY Qty: 7 RF: 0 cephalexin 500 mg capsule 500 mg PO TID 4 Days Qty: 12 RF: 0 Continued Multivitamin Gummies 200 mcg Tablet,Chewable 1 tab PO DAILY RF: 0 No Action ketorolac 10 mg tablet 10 mg PO .BID PRN (Reason: pain) 5 Days Qty: 10 RF: 0 Discharge Orders: Discharge Order (Routine); Ordered 07/22/20 Ordered By: Adam Belcher/Other Patient Handouts: Having a Ureteral Stent, Understanding Kidney Stones, Identifying Kidney Stones Admission Data Admit Date/Time: 07/21/20 01:28 Attending Provider: Patsy Rm Admit Provider: Kendrick Carrion Primary Care Provider: PCP,NO Other Providers: Joe Alfaro ; Sarah Montoya Other Interventions: Discharge Summary Assessment (RN) Last Done: 07/22/20 18:25 Supervising Physician Co-Signing Physician Notes Resident Physician Supervision Note: I independently interviewed and examined the patient and verified the lynch history and physical, reviewed labs and image studies and agree with resident Dr. Montoya findings and care plan. Resident Activity Tracking Resident Involvement: Resident Care Provided Care Provided: Adult [facility] Medicine
[2020-07-22] MEDS ORDERED: LIDOCAINE 2% 2 ML VIAL/AMP(20MG/ML) INFIL ONE (13:34)
[2020-07-22] MEDS ORDERED: PROPOFOL IV EMULSION 10 MG/ML 20 ML VIAL IV ONE (13:34)
[2020-07-22] MEDS ORDERED: ONDANSETRON INJ 2 MG/ML 2 ML VIAL ONE (13:34)
[2020-07-22] MEDS ORDERED: DEXAMETHASONE SOD INJ 4 MG/ML VIAL ONE (13:34)
[2020-07-22] MEDS ORDERED: MIDAZOLAM HCL 1 MG/ML 2ML VIAL ONE (13:35)
[2020-07-22] MEDS ORDERED: fentaNYL citrate 100 MCG/2 ML VIAL ONE (13:35)
--- NOTE | 2020-07-22 13:52 | Anesthesiology Consultation ---
Date of Service July 22, 2020 Assessment & Plan (1) Encounter for pre-operative examination: Chart Review Chart Review: Acceptable Risk for Surgery History Surgery Operation Date: 07/22/20 12:45 Proposed Procedures p Cystoscopy, Right Ureteroscopy, Possible Laser Lithotripsy, Right Stent Placement - Joe Alfaro MD Height/Weight Height: 5 ft 6 in Weight: 61.2 kg Allergies Allergy/AdvReac Type Severity Reaction Status Date / Time No Known Allergies Allergy Unverified 07/21/20 00:47 Medications Home Medications Medication Instructions Recorded Confirmed Last Taken multivit with min-folic acid 1 tab PO DAILY 07/21/20 07/21/20 07/20/20 [Multivitamin Gummies] Active Medications Generic Name Dose Route Start Last Admin Trade Name Freq PRN Reason Stop Dose Admin Ceftriaxone Sodium 1,000 mg/ 50 mls @ 100 mls/hr 07/21/20 03:00 07/22/20 05:49 Dextrose IV 07/31/20 02:59 Infused Q24H XAVIER Infusion Protocol Lactated Ringer's 1,000 mls @ 100 mls/hr 07/21/20 23:55 07/22/20 10:10 Lr IV 08/20/20 23:54 100 mls/hr .Q10H XAVIER Administration Ketorolac Tromethamine 15 mg 07/21/20 01:28 07/21/20 18:04 Ketorolac Tromethamine 15 Mg/Ml Vial IV 07/26/20 01:27 15 mg Q6H PRN Administration Pain & Pre PT Morphine Sulfate 4 mg 07/21/20 01:28 07/21/20 01:58 Morphine Sulfate 4 Mg/Ml 1 Ml Carp\Vial IV 08/04/20 01:27 4 mg Q3H PRN Administration Pain (6,7,8,9,10) NPO Date Last Intake of Fluids: 07/21/20 Time Last Intake of Fluids: 21:00 Last Intake of Fluids Comment: prior to midnight. Date Last Intake of Solids: 07/21/20 Time Last Intake of Solids: 20:00 Last Intake of Solids Comment: prior to midnight. Past Medical History Medical History (Updated 07/22/20 @ 13:52 by Cristóbal Ryan MD) Nephrolithiasis No significant medical problems Past Surgical History Surgical History (Updated 07/22/20 @ 13:52 by Cristóbal Ryan MD) No significant past surgical history Social History Smoking Status: Never smoker Do You Dip or Chew Tobacco: No Hx Alcohol Use: Yes Alcohol type: beer alcohol intake frequency: a few times a week Hx Substance Use: No Physical Exam Vital Signs Last Vital Signs Temp 37.3 C 07/22/20 13:35 Pulse 72 07/22/20 13:35 Resp 20 07/22/20 13:35 BP 121/61 07/22/20 13:35 Pulse Ox 98 07/22/20 13:35 Testing Laboratory Results 07/21/20 00:06 07/21/20 00:06 Urine Color Yellow 07/20/20 23:30 Urine Appearance Clear (Clear) 07/20/20 23:30 Urine pH 7.0 (4.5-7.5) 07/20/20 23:30 Ur Specific [place] 1.009 (1.000-1.030) 07/20/20 23:30 Urine Protein 2+ (Negative) H 07/20/20 23:30 Urine Glucose (UA) Negative (Negative) 07/20/20 23:30 Urine Ketones Negative (Negative) 07/20/20 23:30 Urine Nitrite Negative (Negative) 07/20/20 23:30 Ur Leukocyte Esterase Negative (Negative) 07/20/20 23:30 Urine WBC (Auto) 1-5 /hpf (0-5) 07/20/20 23:30 Urine RBC (Auto) 0-4 /hpf (0-4) 07/20/20 23:30 U Hyaline Cast (Auto) 1-5 /lpf (0-5) 07/20/20 23:30 U Epithel Cells (Auto) >30 /lpf (0-5) H 07/20/20 23:30 Urine Bacteria (Auto) Negative (Negative) 07/20/20 23:30 Urine Test Negative (Negative) 07/20/20 23:30 07/20/20 23:30 Urine Test Negative
[2020-07-22] MEDS ORDERED: PROMETHAZINE HCL 6.25 MG in SODIUM CHLORIDE 0.9% 50 ML IV PRN (13:53)
[2020-07-22] MEDS ORDERED: ONDANSETRON INJ 2 MG/ML 2 ML VIAL IV PRN (13:53)
[2020-07-22] MEDS ORDERED: ATROPINE SULFATE 0.1 MG/ML 10ML SYR IV PRN (13:53)
[2020-07-22] MEDS ORDERED: fentaNYL citrate 100 MCG/2 ML VIAL IV PRN (13:53)
--- NOTE | 2020-07-22 14:01 | History & Physical Bridge Note ---
Date of Service July 22, 2020 History & Physical Bridge Note I have examined the patient, reviewed the History & Physical and in the interval since the performance of the History & Physical I have noted the following changes of clinical significance: no changes noted
--- NOTE | 2020-07-22 15:15 | Operative Report ---
PG Post Operative Report Pre & Post Diagnosis Operation Date: 07/22/20 12:45 Pre-Op Diagnosis: Nephrolithiasis Post-Op Diagnosis: Nephrolithiasis I identified the patient and participated in the time-out.: Yes Procedure Operation Date: 07/22/20 12:45 Actual Procedures p Cystoscopy, Right Ureteroscopy, Laser Lithotripsy, Right Stent Placement(Right) - Joe Alfaro MD Surgeon Chester Alfaro MD Sap Analyst none Estimated Blood Loss 0 Findings Consistent with Post-Op Diagnosis Specimens none Description of Procedure The patient was identified in the preoperative holding area, appropriate informed consents were reviewed and completed and the patient was transferred to the operative suite. Upon arrival, appropriate antibiotics and anesthesia were administered and the patient was placed in dorsal lithotomy position and prepped and draped in sterile fashion. To begin the case I passed a 22 [place] cystoscope with 30 degree lens. Inspection of the bladder was unremarkable. She had ureteral orifices in orthotopic position and no other mucosal abnormalities. Turned my attention of the right UO and cannulated with a sensor wire and a 10 [place] double-lumen catheter. I then advanced a second wire into the kidney. There was a large opacity in the area of the proximal ureter consistent with her preoperative imaging and stone. I then exchanged the 10 [place] double-lumen catheter for a flexible ureteroscope and performed a full renoscopy. There was a yellow appearing calculus in the midpole of the kidney that was subsequently pushed into a posterior calyx and treated utilizing a 272 m fiber. The stone fragmented into small pieces without difficulty. I completed a repeat renoscopy identifying no large retained fragments before careful exit ureteroscopy revealed a healthy-appearing ureter. I placed a 6 [place] by 24 cm double-J ureteral stent seeing a good curl in the kidney as well as the bladder. A string was left attached to the distal aspect of the stent. She was extubated and taken to the PACU in stable condition. There were no complications. I attest to the content of the Intraoperative Record and any orders documented therein. Any exceptions are noted below.
--- NOTE | 2020-07-22 15:25 | Fluoroscopy Report ---
FL KUB CLINICAL HISTORY: RETROGRADE PYELOGRAM COMPARISON STUDY: None. FLUOROSCOPY TIME: 4.5 seconds. A single fluoroscopic spot image of the abdomen. FINDINGS: Fluoroscopy provided for right ureteral stent placement. Only the proximal portion of the s tent is identified and appears in good position. IMPRESSION: Fluoroscopy provided for right ureteral stent placement. ACT 112: Negative or not required by law. Electronically signed by: Junior Felix M.D. 07/22/2020 3:23 PM
--- NOTE | 2020-07-22 15:37 | Anesthesiology Progress Note ---
Date of Service July 22, 2020 Anesthesia Post Procedure Vital Signs Vital Signs: Temp Pulse Pulse Resp BP BP Pulse Ox 07/22/20 15:30 97.5 F L 62 18 119/72 100 07/22/20 15:20 59 L 18 119/75 100 07/22/20 15:14 97.2 F L 70 18 123/72 98 07/22/20 13:35 99.1 F 72 20 121/61 98 07/22/20 07:13 98.1 F 73 18 113/73 98 07/21/20 23:00 98.1 F 54 L 16 99/66 L 99 Pain Intensity Bilateral Abdomen: Pain Intensity: 6 Transfer of Care Handoff Completed per policy Notes Mental Status: alert / awake / arousable and participated in evaluation Patient Amnestic to Procedure: Yes Nausea / Vomiting: adequately controlled Pain: adequately controlled Airway Patency, RR, SpO2: stable & adequate BP & HR: stable & adequate Hydration State: stable & adequate Anesthetic Complications: no major complications apparent and Pt Satisfied with anesthetic care
[2020-07-22] MEDS: KETOROLAC TROMETHAMINE 15 MG/ML VIAL IV PRN (15:55)
[2020-07-22] MEDS ORDERED: PHENAZOPYRIDINE HCL 200 MG TAB PO PRN (16:05)
== END 2020-07-22 18:51 | disposition home or self-care (01) | DRG 661 ==
LOC: ED 21:34 → 3E 07-21 01:28 → SUATTDRO 07-21 01:28 → 3E 07-21 02:01

== ENCOUNTER 2020-07-25 04:29 | Observation (INO) ==
[2020-07-25] MEDS ORDERED: SODIUM CHLORIDE 0.9% 1000ML 1,000 ML IV STA (04:35)
[2020-07-25] MEDS ORDERED: KETOROLAC TROMETHAMINE 15 MG/ML VIAL IV STA (04:35)
[2020-07-25] MEDS ORDERED: MoRPHine SULFATE 4 MG/ML 1 ML CARP\\VIAL IV STA (04:42)
[2020-07-25] MEDS ORDERED: ONDANSETRON INJ 2 MG/ML 2 ML VIAL IV STA (04:42)
--- NOTE | 2020-07-25 04:45 | Emergency Department Note ---
History of Present Illness General Chief complaint: Flank Pain Stated complaint: RT FLANK PAIN Time Seen by Provider: 07/25/20 04:35 History of Present Illness Maximum Pain Intensity: 10 This 24-year-old presents to the ER complaining of worsening right flank pain who had lithotripsy done the other day by Dr. Alfaro Location: Right flank Quality: Sharp Severity: Moderate Duration: Today Timing: Today Context: Pain got worse and patient came in Modifying factors: better with nothing; worse with nothing Patient took Toradol yesterday and Tylenol tonight. The pain is worse. Patient denies chest pain, dyspnea, fevers, flulike illness. She is on Pyridium Keflex Zofran and Toradol. Home Medications Medication Instructions Recorded Confirmed Type Multivitamin Gummies 1 tab PO DAILY 07/21/20 07/25/20 History cephalexin 500 mg PO TID 4 Days #12 cap 07/22/20 07/25/20 Rx oxybutynin chloride 5 mg PO DAILY #7 tab 07/22/20 07/25/20 Rx phenazopyridine [Pyridium] 200 mg PO Q8H PRN 7 Days #21 tab 07/22/20 07/25/20 Rx acetaminophen [Tylenol Extra 1,000 mg PO Q6H PRN 07/25/20 07/25/20 History Strength] ketorolac 10 mg PO BID PRN 07/25/20 07/25/20 History levonorgestrel [Mirena] 20 mcg INTRAUTERINE CONT 07/25/20 07/25/20 History Allergies Allergy/AdvReac Type Severity Reaction Status Date / Time No Known Allergies Allergy Unverified 07/25/20 07:00 Past Med/Surg History Medical History Hydronephrosis, right Surgical History History of lithotripsy Social History Smoking Status: Never smoker Second Hand Exposure: No; Hx Alcohol Use: Yes Alcohol type: beer Hx Substance Use: No Preferred Language: Tajik Communication Ability: Effective 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 Feels Safe at Home: Yes Assistive Devices: Glasses Review of Systems A total of 10 systems reviewed and were otherwise negative Physical Exam Vital Signs Vital Signs - 24 hr 07/25/20 04:31 07/25/20 05:00 07/25/20 05:01 Temperature 36.8 C Temperature Source Oral Pulse Rate 98 H 54 L 64 Pulse Rate from SpO2 Sensor 54 L 70 Pulse Rhythm Regular Pulse Strength Normal Respiratory Rate 18 22 17 Respiratory Effort / Characteristics Non-Labored Respiratory Depth Normal Respiratory Pattern Regular Blood Pressure 143/75 H 122/80 Blood Pressure Mean 97 94 Blood Pressure Position Lying Pulse Oximetry 98 97 95 Oxygen Delivery Method Room Air Sepsis Recent Fever Within 48 Hours No Sepsis New/Unexplained Change in Mental Status N/A Sepsis Action Taken by Nursing No Action Required 07/25/20 05:05 07/25/20 06:10 Temperature Temperature Source Pulse Rate 54 L Pulse Rate from SpO2 Sensor 54 L Pulse Rhythm Pulse Strength Respiratory Rate 17 Respiratory Effort / Characteristics Respiratory Depth Respiratory Pattern Blood Pressure 133/83 Blood Pressure Mean 99 Blood Pressure Position Pulse Oximetry 96 Oxygen Delivery Method Room Air Sepsis Recent Fever Within 48 Hours Sepsis New/Unexplained Change in Mental Status Sepsis Action Taken by Nursing VITALS: Vitals are noted on the nurse's note and reviewed by myself. Vital signs stable. GENERAL: White female who appears in pain, in no acute distress, nondiaphoretic, well-developed well-nourished. SKIN: Capillary reflex less than 2 seconds. HEENT: Normocephalic. PERRLA. EOMI. Nares patent. Mucous membranes moist. Neck is supple without nuchal rigidity. HEART: Regular rate and rhythm without murmurs gallops or rubs. LUNGS: Clear to auscultation bilaterally without wheezes, rales or rhonchi. No retractions or accessory muscle use. ABDOMEN: Positive bowel sounds x 4. Normal tympanic percussion. Soft, nontender, without masses or organomegaly. Cunha sign negative. No guarding or rebound tenderness. No CVA tenderness MUSCULOSKELETAL: No gross musculoskeletal defects. NEURO: Patient was alert and oriented to person place and time. No focal neurological deficits. Course Administered Medications Bisacodyl (Bisacodyl 10 Mg Supp) 10 mg MS DAILY PRN PRN Reason: Constipation Stop: 08/24/20 10:53 Last Admin: 07/25/20 18:24 Dose: 10 mg Documented by: [id number] Docusate Sodium (Docusate Sodium 100 Mg Cap) 100 mg PO BID PRN PRN Reason: Constipation Stop: 08/24/20 10:53 Last Admin: 07/25/20 21:49 Dose: 100 mg Documented by: [id number] Lactated Ringer's (Lr) 1,000 mls @ 125 mls/hr IV .Q8H XAVIER Stop: 07/26/20 10:53 Last Admin: 07/25/20 20:42 Dose: 125 mls/hr Documented by: [id number] Infusion: 07/25/20 19:40 Dose: 0 mls/hr Documented by: [id number] Admin: 07/25/20 11:27 Dose: 125 mls/hr Documented by: [id number] Ketorolac Tromethamine (Ketorolac Tromethamine 15 Mg/Ml Vial) 15 mg IV Q6H PRN PRN Reason: Pain Stop: 07/30/20 10:53 Last Admin: 07/25/20 18:24 Dose: 15 mg Documented by: [id number] Admin: 07/25/20 11:26 Dose: 15 mg Documented by: [id number] Oxybutynin Chloride (Oxybutynin Chloride 5 Mg Tab) 5 mg PO DAILY XAVIER Stop: 08/24/20 10:53 Last Admin: 07/25/20 18:57 Dose: Not Given Documented by: [id number] Polyethylene Glycol (Polyethylene (Miralax) 17 Gm Pack) 17 gm PO DAILY XAVIER Stop: 08/24/20 12:59 Last Admin: 07/25/20 14:46 Dose: 17 gm Documented by: [id number] Senna/Docusate Sodium (Docusate Sodium/Senna 50/8.6mg Tab) 2 tab PO QAM XAVIER Stop: 08/24/20 11:44 Last Admin: 07/25/20 12:07 Dose: 2 tab Documented by: [id number] Discontinued Medications Sodium Chloride (Nss 1000ml) 1,000 mls @ 999 mls/hr IV .Q1H1M STA Stop: 07/25/20 05:35 Last Infusion: 07/25/20 05:53 Dose: 0 mls/hr Documented by: [id number] Admin: 07/25/20 04:57 Dose: 999 mls/hr Documented by: [id number] Ceftriaxone Sodium (Rocephin) 1,000 mg in 50 mls @ 100 mls/hr IV NOW STA Stop: 07/25/20 06:11 Last Infusion: 07/25/20 11:11 Dose: 0 mls/hr Documented by: [id number] Admin: 07/25/20 06:09 Dose: 100 mls/hr Documented by: [id number] Sodium Chloride (Nss 1000ml) 1,000 mls @ 999 mls/hr IV .Q1H1M ONE Stop: 07/25/20 20:23 Last Infusion: 07/25/20 20:42 Dose: 0 mls/hr Documented by: [id number] Admin: 07/25/20 19:40 Dose: 999 mls/hr Documented by: [id number] Ketorolac Tromethamine (Ketorolac Tromethamine 15 Mg/Ml Vial) 10 mg IV NOW STA Stop: 07/25/20 04:36 Last Admin: 07/25/20 04:55 Dose: 10 mg Documented by: [id number] Magnesium Citrate (Magnesium Citrate 296 Ml/Btl) 148 ml PO TODAY@2044 ONE Stop: 07/25/20 20:46 Last Admin: 07/25/20 20:42 Dose: 148 ml Documented by: [id number] Morphine Sulfate (Morphine Sulfate 4 Mg/Ml 1 Ml Carp\Vial) 4 mg IV NOW STA Stop: 07/25/20 04:43 Last Admin: 07/25/20 04:55 Dose: 4 mg Documented by: [id number] Morphine Sulfate (Morphine Sulfate 2 Mg/Ml Carp) 2 mg IV NOW STA Stop: 07/25/20 06:23 Last Admin: 07/25/20 11:10 Dose: Not Given Documented by: [id number] Ondansetron HCl (Ondansetron Inj 2 Mg/Ml 2 Ml Vial) 4 mg IV NOW STA Stop: 07/25/20 04:43 Last Admin: 07/25/20 04:56 Dose: 4 mg Documented by: [id number] Medical Decision Making Medical Records Attestation: I reviewed the patient's medical records. Home Medications Current Medication List: was personally reviewed by me Laboratory Data Attestation: I reviewed the patient's lab results. Result diagrams: 07/25/20 04:55 07/25/20 04:55 Lab Results 07/25/20 07/25/20 07/25/20 Range/Units 04:55 04:55 04:55 WBC 10.01 (4.8-10.8) K/uL RBC 4.68 (4.2-5.4) M/uL Hgb 13.5 (12.0-16.0) g/dL Hct 38.1 (37-47) % MCV 81.4 (80-100) fL MCH 28.8 (25-34) pg MCHC 35.4 (32-36) g/dL RDW Std Deviation 36.6 (36.4-46.3) fL RDW Coeff of Umang 12.4 (11.5-14.5) % Plt Count 234 (130-400) K/uL MPV 8.8 (7.4-10.4) fL Immature Gran % (Auto) 0.2 % Neut % (Auto) 65.2 % Lymph % (Auto) 20.8 % [place] % (Auto) 11.4 % Eos % (Auto) 2.2 % Baso % (Auto) 0.2 % Neut # (Auto) 6.53 H (1.4-6.5) K/uL Lymph # (Auto) 2.08 (1.2-3.4) K/uL [place] # (Auto) 1.14 H (0.11-0.59) K/uL Eos # (Auto) 0.22 (0-0.5) K/uL Baso # (Auto) 0.02 (0-0.2) K/uL Immature Gran # (Auto) 0.02 (0.00-0.02) K/uL Sodium 141 (136-145) mmol/L Potassium 3.6 (3.5-5.1) mmol/L Chloride 111 H (98-107) mmol/L Carbon Dioxide 24 (21-32) mmol/L Anion Gap 6.0 (3-11) BUN 8 (7-18) mg/dl Creatinine 0.72 (0.6-1.2) mg/dl Est Cr Clr Drug Dosing 114.7 ml/min Est GFR ( Amer) 137.8 ml/min Est GFR (Non-Af Amer) 118.9 ml/min BUN/Creatinine Ratio 10.9 (10-20) Glucose 92 (70-99) mg/dl Calcium 8.7 (8.5-10.1) mg/dl Total Bilirubin 0.4 (0.2-1) mg/dl AST 17 (15-37) U/L ALT 22 (12-78) U/L Alkaline Phosphatase 81 (45-117) U/L Total Protein 6.8 (6.4-8.2) gm/dl Albumin 3.9 (3.4-5.0) gm/dl Globulin 2.9 (2.5-4.0) gm/dl Albumin/Globulin Ratio 1.3 (0.9-2) HCG, Qual Negative (Negative) Urine Color Urine Appearance (Clear) Urine pH (4.5-7.5) Ur Specific [place] (1.000-1.030) Urine Protein (Negative) Urine Glucose (UA) (Negative) Urine Ketones (Negative) Urine Blood (Negative) Urine Nitrite (Negative) Urine Bilirubin (Negative) Urine Urobilinogen (Negative) Ur Leukocyte Esterase (Negative) Urine RBC (0-4) /hpf Urine WBC (0-5) /hpf Ur Epithelial Cells (0-5) /lpf Urine Bacteria (Negative) COVID-19 Eval Order SARS-CoV-2 (PCR) (Negative) 07/25/20 07/25/20 07/25/20 Range/Units 04:55 06:05 06:05 WBC (4.8-10.8) K/uL RBC (4.2-5.4) M/uL Hgb (12.0-16.0) g/dL Hct (37-47) % MCV (80-100) fL MCH (25-34) pg MCHC (32-36) g/dL RDW Std Deviation (36.4-46.3) fL RDW Coeff of Umang (11.5-14.5) % Plt Count (130-400) K/uL MPV (7.4-10.4) fL Immature Gran % (Auto) % Neut % (Auto) % Lymph % (Auto) % [place] % (Auto) % Eos % (Auto) % Baso % (Auto) % Neut # (Auto) (1.4-6.5) K/uL Lymph # (Auto) (1.2-3.4) K/uL [place] # (Auto) (0.11-0.59) K/uL Eos # (Auto) (0-0.5) K/uL Baso # (Auto) (0-0.2) K/uL Immature Gran # (Auto) (0.00-0.02) K/uL Sodium (136-145) mmol/L Potassium (3.5-5.1) mmol/L Chloride (98-107) mmol/L Carbon Dioxide (21-32) mmol/L Anion Gap (3-11) BUN (7-18) mg/dl Creatinine (0.6-1.2) mg/dl Est Cr Clr Drug Dosing ml/min Est GFR ( Amer) ml/min Est GFR (Non-Af Amer) ml/min BUN/Creatinine Ratio (10-20) Glucose (70-99) mg/dl Calcium (8.5-10.1) mg/dl Total Bilirubin (0.2-1) mg/dl AST (15-37) U/L ALT (12-78) U/L Alkaline Phosphatase (45-117) U/L Total Protein (6.4-8.2) gm/dl Albumin (3.4-5.0) gm/dl Globulin (2.5-4.0) gm/dl Albumin/Globulin Ratio (0.9-2) HCG, Qual (Negative) Urine Color Brown Urine Appearance Turbid A (Clear) Urine pH (4.5-7.5) Ur Specific [place] 1.012 (1.000-1.030) Urine Protein (Negative) Urine Glucose (UA) (Negative) Urine Ketones (Negative) Urine Blood (Negative) Urine Nitrite (Negative) Urine Bilirubin (Negative) Urine Urobilinogen (Negative) Ur Leukocyte Esterase (Negative) Urine RBC >30 H (0-4) /hpf Urine WBC 10-30 H (0-5) /hpf Ur Epithelial Cells 10-20 H (0-5) /lpf Urine Bacteria 1+ H (Negative) COVID-19 Eval Order Covid19 at [facility] SARS-CoV-2 (PCR) NEGATIVE (Negative) Imaging Data Attestation: I personally reviewed and interpreted this imaging study as follows: MDM Narrative Prior records/ancillary studies reviewed. Triage Nursing notes reviewed. Additional history obtained from the family. The patient's history was concerning for right flank pain. Differential diagnosis: Etiologies such as renal colic, appendicitis, diverticulitis, mesenteric ischemia, aortic pathology, infections, inflammatory bowel disease, PUD, biliary pathology, UTI, as well as others were entertained. Physical examination findings: As above. ER treatment provided: Toradol morphine Zofran IV fluids, Rocephin On reassessment the patient felt better. Diagnostic interpretation by me: The labs revealed stable H&H. Urinalysis revealed concerns for possible infection and a urine culture was sent. No prior urine culture Imaging studies: reviewed Consultation: A consultation was placed with the hospitalist. The case was discussed and diagnostics were reviewed. The patient was evaluated in the ER for further treatment. It appears that the patient has isolated renal colic from a right sided stone. Patient still in moderate amount of pain. Medicine was consulted. She will be evaluated for admission. By the evaluation outlined above emergent etiologies such as appendicitis, diverticulitis, mesenteric ischemia, aortic pathology, inflammatory bowel disease, PUD, biliary pathology, as well as others were deemed relatively unlikely. The pt informed about the findings as listed above. All questions were answered and pleased with the treatment. The chart was completed utilizing [employer] Speech voice recognition software. Grammatical errors, random word insertions, pronoun errors, and incomplete sentences are an occassional consequence of this system due to software limitations, ambient noise, and hardware issues. Any formal questions or concerns about the content, text, or information contained within the body of this dictation should be directly addressed to the physician sociology research assistant for clarification. Impression & Plan Nephrolithiasis, Renal colic on right side Discharge Plan Visit Data Chief Complaint: Flank Pain Stated Complaint: RT FLANK PAIN ED Provider: Fidelina Parker ED Midlevel Provider: Earlene Long Discharge Problem: Nephrolithiasis, Renal colic on right side Patient Disposition: Admitted As Inpatient Condition: Good Discharge Instructions Interventions: ED Discharge Assessment Last Done: 07/25/20 10:37
[2020-07-25 05:07] LABS: Basophils # (auto) 0.02 K/uL (0-0.2); Basophils % (auto) 0.2 %; Eosinophils # (auto) 0.22 K/uL (0-0.5); Eosinophils % (auto) 2.2 %; Hematocrit (blood only) 38.1 % (37-47); Hemoglobin 13.5 g/dL (12.0-16.0); Immature Granulocytes # (auto) 0.02 K/uL (0.00-0.02); Immature Granulocytes % (auto) 0.2 %; Lymphocytes # (auto) 2.08 K/uL (1.2-3.4); Lymphocytes % (auto) 20.8 %; Mean Corpuscular Hemoglobin 28.8 pg (25-34); Mean Corpuscular Hgb Conc 35.4 g/dL (32-36); Mean Corpuscular Volume 81.4 fL (80-100); Mean Platelet Volume 8.8 fL (7.4-10.4); Monocytes # (auto) 1.14 K/uL (0.11-0.59); Monocytes % (auto) 11.4 %; Neutrophils # (auto) 6.53 K/uL (1.4-6.5); Neutrophils % (auto) 65.2 %; Platelet Count 234 K/uL (130-400); RDW Coefficient of Variation 12.4 % (11.5-14.5); RDW Standard Deviation 36.6 fL (36.4-46.3); Red Blood Count 4.68 M/uL (4.2-5.4); White Blood Count 10.01 K/uL (4.8-10.8)
[2020-07-25 05:20] LABS: Appearance Urine Turbid (Clear); Color Urine Brown; Specific Gravity Urine 1.012 (1.000-1.030)
[2020-07-25 05:25] LABS: Bacteria Urine 1+ (Negative); RBC Urine >30 /hpf (0-4)
[2020-07-25 05:28] LABS: Albumin Level 3.9 gm/dl (3.4-5.0); BUN Creatinine Ratio 10.9 (10-20); Calcium 8.7 mg/dl (8.5-10.1); Creatinine Clr Calc Pharmacy 114.7 ml/min; Est GFR (African American) 137.8 ml/min; Est GFR (Non-African American) 118.9 ml/min; Potassium 3.6 mmol/L (3.5-5.1)
[2020-07-25 05:31] LABS: Albumin Globulin Ratio 1.3 (0.9-2); Bilirubin,Total 0.4 mg/dl (0.2-1); Globulin 2.9 gm/dl (2.5-4.0); Total Protein 6.8 gm/dl (6.4-8.2)
[2020-07-25 05:32] LABS: Pregnancy Test, Serum Negative (Negative)
[2020-07-25] MEDS ORDERED: cefTRIAXone SODIUM 1,000 MG/50 ML BAG IV STA (05:42)
[2020-07-25] MEDS ORDERED: MoRPHine SULFATE 2 MG/ML CARP IV STA (06:22)
--- NOTE | 2020-07-25 06:50 | History & Physical Report ---
Date of Service July 25, 2020 Assessment & Plan (1) Abdominal pain: 24yo female with history of nephrolithiasis - recent 1.2cm stone s/p lithotripsy. Patient had been taking Tylenol and Ibuprofen at home for discomfort, however, was in significant pain. Was prescribed PO Toradol with minimal relief. She has ongoing flank pain as well as abdominal pain. Most likely secondary to recent procedure as well as constipation/gas pains. -Observation to medical floor -Toradol 15mg IV q 6 hours PRN -Morphine 2mg IV q 4 hours PRN - increase as needed -Bowel regimen as below Present on Admission?: Yes (2) Calculus of proximal right ureter: S/P lithotripsy. Patient had been on Keflex outpatient. Denies fevers/chills -Continue straining urine -Ceftriaxone 1gm IV daily -Continue Pyridium PRN -Continue Oxybutynin daily -Toradol and Morphine PRN as above Present on Admission?: Yes (3) Constipation: Patient has been unable to have a bowel movement since 07/22/20. Most likely secondary to pain medication + recent procedure. Her abdomen is soft, episodes of cramping associated with tightness of the abdomen, bowel sounds are present and normal. Suspect constipation/gas pains contributing to abdominal discomfort -Colace BID PRN -Dulcolax suppository PRN -IVF and electrolyte repletion -Encourage ambulation -Will check KUB to assess for obstructive bowel gas pattern F/E/N - LR at 125mL/hr x 2 liters, electrolytes WNL, Regular diet as tolerated Ppx - Low risk for DVT. IVF and ambulation encouraged Code - Full Dispo - Observation to medical History of Present Illness Chief Complaint: flank pain, nausea Primary Care Provider: NO PCP Bethany Beasley is a pleasant 24yo female with history of 1.2cm renal stone in proximal right ureter/UPJ with hydronephrosis s/p lithotripsy with stent placement performed on 07/22/20. Procedure was well tolerated with no complications identified. Patient was discharged home on 07/22/20. She returns today with severe intermittent discomfort - right flank as well as episodes of severe, cramping abdominal pain. She has been urinating without difficulty and straining her urine as instructed. She has been unable to have a bowel movement since discharge. She is passing gas but infrequently. She has had some nausea as well, no vomiting. No additional complaints at this time. She denies fever. Patient had a wave of abdominal pain during my encounter that lasted appx 2 minutes - abdomen became tight and tender. Patient in significant discomfort. ER Course: Ceftriaxone, Toradol 10mg, Morphine 4mg + 2mg, Zofran 4mg, NSS Allergies Allergy/AdvReac Type Severity Reaction Status Date / Time No Known Allergies Allergy Unverified 07/21/20 00:47 Home Medications Medication Instructions Recorded Confirmed Type Multivitamin Gummies 1 tab PO DAILY 07/21/20 07/21/20 History cephalexin 500 mg PO TID 4 Days #12 cap 07/22/20 Rx oxybutynin chloride 5 mg PO DAILY #7 tab 07/22/20 Rx phenazopyridine [Pyridium] 200 mg PO Q8H PRN 7 Days #21 tab 07/22/20 Rx ketorolac 10 mg tablet 10 mg PO .BID PRN 5 Days #10 tab 07/23/20 Rx Past Med/Surg History Medical History (Updated 07/25/20 @ 06:47 by Sarah Montoya DO) Hydronephrosis, right Surgical History History of lithotripsy Social History Smoking Status: Never smoker Second Hand Exposure: No; Hx Alcohol Use: Yes Alcohol type: beer Hx Substance Use: No Preferred Language: Togolese [employer] Officer Required: No Beliefs That Will Affect Care: None Current Living Situation Comment: apartment with 1 roomate Feels Safe at Home: Yes Assistive Devices: Glasses Review of Systems Review of Systems: All systems reviewed & are unremarkable except as noted in HPI & below Physical Exam Physical Exam: General: patient resting comfortably, NAD, non-toxic in appearance, AA&O x 4 Skin: warm, dry, intact, no rashes or lesions HEENT: NC/AT, PERRL, EOMI, anicteric sclera, conjunctiva without injection, external ear normal to inspection and nontender, nares patent, moist mucus membranes, dentition intact, no oropharyngeal lesions, neck supple, trachea midline, no LAD, no thyromegaly, no JVD Heart: +S1/S2, regular, no m/r/g Lungs: equal air entry bilaterally, no rales/rhonchi/wheezes Abd: +BS, soft, diffusely tender without rebound, some voluntary guarding, ND, no masses/organomegaly/ascites Ext: warm, 2+ pulses in UE/LE bilaterally, no clubbing/cyanosis or edema Neuro: nonfocal, patient AA&O x 4, speech intact, no facial droop, moving all extremities on command with equal strength 5/5 Results & Data Results & Data ([facility]) Vital Signs (Past 12 Hours) Vital Signs Temp Pulse Resp BP Pulse Ox 07/25/20 06:10 54 L 17 133/83 96 07/25/20 05:01 64 17 95 07/25/20 05:00 54 L 22 122/80 97 07/25/20 04:31 36.8 C 98 H 18 143/75 H 98 Laboratory Results Laboratory Results WBC 10.01 K/uL (4.8-10.8) 07/25/20 04:55 RBC 4.68 M/uL (4.2-5.4) 07/25/20 04:55 Hgb 13.5 g/dL (12.0-16.0) 07/25/20 04:55 Hct 38.1 % (37-47) 07/25/20 04:55 MCV 81.4 fL (80-100) 07/25/20 04:55 MCH 28.8 pg (25-34) 07/25/20 04:55 MCHC 35.4 g/dL (32-36) 07/25/20 04:55 RDW Std Deviation 36.6 fL (36.4-46.3) 07/25/20 04:55 RDW Coeff of Umang 12.4 % (11.5-14.5) 07/25/20 04:55 Plt Count 234 K/uL (130-400) 07/25/20 04:55 MPV 8.8 fL (7.4-10.4) 07/25/20 04:55 Immature Gran % (Auto) 0.2 % 07/25/20 04:55 Neut % (Auto) 65.2 % 07/25/20 04:55 Lymph % (Auto) 20.8 % 07/25/20 04:55 [place] % (Auto) 11.4 % 07/25/20 04:55 Eos % (Auto) 2.2 % 07/25/20 04:55 Baso % (Auto) 0.2 % 07/25/20 04:55 Neut # (Auto) 6.53 K/uL (1.4-6.5) H 07/25/20 04:55 Lymph # (Auto) 2.08 K/uL (1.2-3.4) 07/25/20 04:55 [place] # (Auto) 1.14 K/uL (0.11-0.59) H 07/25/20 04:55 Eos # (Auto) 0.22 K/uL (0-0.5) 07/25/20 04:55 Baso # (Auto) 0.02 K/uL (0-0.2) 07/25/20 04:55 Immature Gran # (Auto) 0.02 K/uL (0.00-0.02) 07/25/20 04:55 Sodium 141 mmol/L (136-145) 07/25/20 04:55 Potassium 3.6 mmol/L (3.5-5.1) 07/25/20 04:55 Chloride 111 mmol/L (98-107) H 07/25/20 04:55 Carbon Dioxide 24 mmol/L (21-32) 07/25/20 04:55 Anion Gap 6.0 (3-11) 07/25/20 04:55 BUN 8 mg/dl (7-18) 07/25/20 04:55 Creatinine 0.72 mg/dl (0.6-1.2) 07/25/20 04:55 Est Cr Clr Drug Dosing 114.7 ml/min 07/25/20 04:55 Est GFR ( Amer) 137.8 ml/min 07/25/20 04:55 Est GFR (Non-Af Amer) 118.9 ml/min 07/25/20 04:55 BUN/Creatinine Ratio 10.9 (10-20) 07/25/20 04:55 Glucose 92 mg/dl (70-99) 07/25/20 04:55 Calcium 8.7 mg/dl (8.5-10.1) 07/25/20 04:55 Total Bilirubin 0.4 mg/dl (0.2-1) 07/25/20 04:55 AST 17 U/L (15-37) 07/25/20 04:55 ALT 22 U/L (12-78) 07/25/20 04:55 Alkaline Phosphatase 81 U/L (45-117) 07/25/20 04:55 Total Protein 6.8 gm/dl (6.4-8.2) 07/25/20 04:55 Albumin 3.9 gm/dl (3.4-5.0) 07/25/20 04:55 Globulin 2.9 gm/dl (2.5-4.0) 07/25/20 04:55 Albumin/Globulin Ratio 1.3 (0.9-2) 07/25/20 04:55 HCG, Qual Negative (Negative) 07/25/20 04:55 Urine Color Brown 07/25/20 04:55 Urine Appearance Turbid (Clear) A 07/25/20 04:55 Urine pH (4.5-7.5) 07/25/20 04:55 Ur Specific [place] 1.012 (1.000-1.030) 07/25/20 04:55 Urine Protein (Negative) 07/25/20 04:55 Urine Glucose (UA) (Negative) 07/25/20 04:55 Urine Ketones (Negative) 07/25/20 04:55 Urine Blood (Negative) 07/25/20 04:55 Urine Nitrite (Negative) 07/25/20 04:55 Urine Bilirubin (Negative) 07/25/20 04:55 Urine Urobilinogen (Negative) 07/25/20 04:55 Ur Leukocyte Esterase (Negative) 07/25/20 04:55 Urine RBC >30 /hpf (0-4) H 07/25/20 04:55 Urine WBC 10-30 /hpf (0-5) H 07/25/20 04:55 Ur Epithelial Cells 10-20 /lpf (0-5) H 07/25/20 04:55 Urine Bacteria 1+ (Negative) H 07/25/20 04:55 COVID-19 Eval Order Covid19 at [facility] 07/25/20 06:05 PG Care Time/CCT Total # of Minutes Spent Total Time Spent with Patient: Total time spent is greater than 50% in coordination of care (as documented) at patient's floor/unit and/or counseling patient: Coding Level of Care Code 26848 OBS Care - Level 2 Diagnoses Abdominal pain R10.84 Abdominal location: generalized Calculus of proximal right ureter N20.1 Constipation K59.00 Constipation type: unspecified constipation type (1) Abdominal pain Abdominal location: generalized Qualified Code(s): R10.84 - Generalized abdominal pain (2) Constipation Constipation type: unspecified constipation type Qualified Code(s): K59.00 - Constipation, unspecified
--- NOTE | 2020-07-25 09:50 | Ultrasound Report ---
RENAL ULTRASOUND CLINICAL HISTORY: flank pain, lithotripsy COMPARISON STUDY: CT of the abdomen and pelvis July 20, 2020. TECHNIQUE: Sonography of the kidneys and the urinary bladder was performed. FINDINGS: Right kidney measures 11.9 x 6.1 x 5.9 cm and the left measures 11.5 x 4.9 x 4.[address] Modera [address] right hydronephrosis is noted. There are suspected calculi or calculi fragments within the right k [place]ney that measure up to 9 mm. There is a 5 mm left renal calculus. A right ureteral stent is in plac e. Left ureteral jet was visualized. There are possible distal right ureteral calculi/fragments which are difficult to assess given the stent. There is no left hydronephrosis. IMPRESSION: 1. Moderate right hydronephrosis. Right ureteral stent in place. Possible distal right ureteral calcu li/fragments. 2. Right renal calculi/fragments measure up to approximately 9 mm. 5 mm left renal calculus. ACT 112: Negative or not required by law. Electronically signed by: Luis Antonio Norman M.D. 07/25/2020 9:48 AM
[2020-07-25] MEDS ORDERED: OXYBUTYNIN CHLORIDE 5 MG TAB PO SCH (10:54)
[2020-07-25] MEDS ORDERED: MoRPHine SULFATE 2 MG/ML CARP IV PRN (10:54)
[2020-07-25] MEDS ORDERED: PHENAZOPYRIDINE HCL 200 MG TAB PO PRN (10:54)
[2020-07-25] MEDS ORDERED: bisacodyL 10 MG SUPP PR PRN (10:54)
[2020-07-25] MEDS ORDERED: ONDANSETRON INJ 2 MG/ML 2 ML VIAL IV PRN (10:54)
[2020-07-25] MEDS ORDERED: DOCUSATE SODIUM 100 MG CAP PO PRN (10:54)
[2020-07-25] MEDS: KETOROLAC TROMETHAMINE 15 MG/ML VIAL IV PRN ×2 (11:26→18:24)
[2020-07-25] MEDS: LACTATED RINGER'S 1,000 ML IV SCH ×2 (11:27→20:42)
[2020-07-25] MEDS: DOCUSATE SODIUM/SENNA 50/8.6MG TAB PO SCH (12:07)
--- NOTE | 2020-07-25 12:34 | Urology Consultation ---
Date of Consultation July 25, 2020 Assessment & Plan (1) Calculus of proximal right ureter: Patient with history of large stone treated with laser lithotripsy and stent placement. Patient is still dealing with issues and discomfort which comes and goes. Also dealing with constipation issues and abdominal pain. Discussed findings on imaging. Patient CT scan was reviewed interpreted by myself. Patient's recent renal ultrasound and KUB were also reviewed interpreted by myself. Patient appears to have stone along ureter likely fragments from large stone treated in kidney. Does also have fragments up in the kidney. Discussed concerns and issues. Patient has a tethered stent in place and has been tolerating this without major issue. Patient is currently undergoing IV antibiotics and IV hydration. Agree with plans for continued IV hydration. We will outpatient have diet today. We will plan to continue to monitor. If stones within the ureters continue to pass and are not causing major obstructive issues can likely still proceed with plans for stent removal in the near future. If patient is not passing stones or stone appears to be obstructed or starting to develop Steinstrasse may need to consider intervention with further laser lithotripsy and stone basketing. Patient also to monitor for stone passage as well as blood in the urine. We will continue to monitor. We will plan for n.p.o. at midnight tonight in case any need for intervention in the morning. We will otherwise plan to continue to follow. Patient complicated medical and surgical history is reviewed and summarized above. All labs were reviewed. (2) Renal colic on right side: (3) Abdominal pain: (4) Constipation: History of Present Illness Attending Physician: Sarah Montoya, DO History of Present Illness New consultation for patient with stone, discomfort, obstruction, and ill feelings. Patient had a very large stone treated last week. Has stent in place. Has increasing issues with discomfort. Since the stone treatment has noticed continued flank pain intermittently especially when voiding. Also is noticing worsening constipation issues with increasing abdominal pain. Patient had initially presented after the patient developed sudden onset of pain into flank going down and radiating into groin and back in waves comes and goes. Current issues can be severe at times. Discussed and reviewed patient's family history for any history of stone disease. Also, discussed patient's medical surgery history especially related to any history of urinary issues or stone disease. Patient was admitted and is undergoing observation. Allergies Allergy/AdvReac Type Severity Reaction Status Date / Time No Known Allergies Allergy Unverified 07/25/20 07:00 Home Medications Medication Instructions Recorded Confirmed Type Multivitamin Gummies 1 tab PO DAILY 07/21/20 07/25/20 History cephalexin 500 mg PO TID 4 Days #12 cap 07/22/20 07/25/20 Rx oxybutynin chloride 5 mg PO DAILY #7 tab 07/22/20 07/25/20 Rx phenazopyridine [Pyridium] 200 mg PO Q8H PRN 7 Days #21 tab 07/22/20 07/25/20 Rx acetaminophen [Tylenol Extra 1,000 mg PO Q6H PRN 07/25/20 07/25/20 History Strength] ketorolac 10 mg PO BID PRN 07/25/20 07/25/20 History levonorgestrel [Mirena] 20 mcg INTRAUTERINE CONT 07/25/20 07/25/20 History Patient History Medical History Hydronephrosis, right Surgical History History of lithotripsy Social History Smoking Status: Never smoker Second Hand Exposure: No; Hx Alcohol Use: Yes Alcohol type: beer Hx Substance Use: No Preferred Language: [place] Island[place] House Officer Required: No Beliefs That Will Affect Care: None Current Living Situation Comment: apartment with 1 roomate Feels Safe at Home: Yes Assistive Devices: Glasses Review of Systems Review of Systems: All systems reviewed & are unremarkable except as noted in HPI & below Physical Exam Physical Exam: General: Alert and oriented x 3 in no acute distress. Patient is well nourished and well kept. HEENT: Normocephalic Atraumatic. Inspection normal. Cranial Nerves 2-12 Grossly intact. Nares are clear. Neck is supple. Normal inspection of face. Normal inspection of neck. Neurologic: No deficits on inspection. Baseline for motor function and sensory. Psychologic: Normal affect. Respiratory: Nonlabored. No use of accessory muscles. No tachypnea or dyspnea. Cardiovascular: No tachycardia Skin: [place] and Dry. No rashes or visible lesions. Extremities: Moving without issues. No motor deficits on inspection Lymphatics: No edema Abdomen: Soft Non-distended. No acites. No rebound or guarding. Results & Data ([facility]) Vital Signs (Past 12 Hours) Vital Signs Temp Pulse Pulse Pulse Resp BP BP 07/25/20 10:45 37 C 62 18 106/67 07/25/20 10:37 54 L 18 106/56 L 07/25/20 08:30 36.8 C 54 L 18 107/58 L 07/25/20 06:10 54 L 17 133/83 07/25/20 05:01 64 17 07/25/20 05:00 54 L 22 122/80 07/25/20 04:31 36.8 C 98 H 18 143/75 H Pulse Ox 07/25/20 10:45 97 07/25/20 10:37 98 07/25/20 08:30 95 07/25/20 06:10 96 07/25/20 05:01 95 07/25/20 05:00 97 07/25/20 04:31 98 PG Care Time/CCT Total # of Minutes Spent Total Time Spent with Patient: Total time spent is greater than 50% in coordination of care (as documented) at patient's floor/unit and/or counseling patient: Coding Level of Care Code 49400 Inpt Consult Level 5 Diagnoses Calculus of proximal right ureter N20.1 Renal colic on right side N23 Abdominal pain R10.84 Abdominal location: generalized Constipation K59.00 Constipation type: unspecified constipation type (1) Abdominal pain Abdominal location: generalized Qualified Code(s): R10.84 - Generalized abdominal pain (2) Constipation Constipation type: unspecified constipation type Qualified Code(s): K59.00 - Constipation, unspecified
--- NOTE | 2020-07-25 12:43 | History & Physical Bridge Note ---
Date of Service July 25, 2020 History & Physical Bridge Note I have examined the patient, reviewed the History & Physical and in the interval since the performance of the History & Physical I have noted the following changes of clinical significance: Pt reports pain is better with pain control. SHe has not moved her bowels in 3 days as she was fearful of straining. He rpain is mostly in right flanka nd radiating around to RLQ. RUQ US shows mos hydronephrosis and possible distal stone KUB reviewed by me but not read yet by Radiology shows significant stool burden on right colon, but no obstruction. Stent in place and IUD in place Discussed care with Dr. Jaramillo of Urology. Also called pt's mother at pt request and updated her. Plan is to let her eat today, NPO after midnight, continue IVFs, hold oxybutynin fo rconstipation, possible pull stent tomorrow if stone that is distal has passed. KUB in AM -give bisacodyl [place] x 1 now start senna/docusate 2 tabs daily -add on Miralax
[2020-07-25] MEDS: POLYETHYLENE (MIRALAX) 17 GM PACK PO SCH (14:46)
[2020-07-25] MEDS ORDERED: SODIUM CHLORIDE 0.9% 1000ML 1,000 ML IV ONE (19:23)
[2020-07-25] MEDS ORDERED: MAGNESIUM CITRATE 296 ML/BTL PO ONE (20:45)
--- NOTE | 2020-07-25 21:11 | XRay Report ---
XR KUB/Abdomen 1 view CLINICAL HISTORY: abdominal pain, constipation COMPARISON STUDY: July 21, 2020 FINDINGS: Multiple nondilated gas and stool-filled loops of bowel are seen throughout the abdomen. Large amount of stool is seen within the right hemiabdomen. Interval placement of a right-sided double-J urinary stent. Previously seen 12 mm calculus within rig ht upper quadrant is no longer visualized. Previously seen multiple punctate calculi within left upper quadrant are unchanged since prior study and may represent nephrolithiasis. IMPRESSION: 1. Constipation pattern. 2. Interval placement of right-sided urinary stent. Previously seen large calculus within the right upper quadrant is no longer visualized. ACT 112: Negative or not required by law. The above report was generated using voice recognition software. It may contain grammatical, syntax o r spelling errors. Electronically signed by: Luciana Shaikh DO 07/25/2020 9:10 PM
--- NOTE | 2020-07-26 00:23 | Communication Note ---
Date of Service: July 25, [id number] RN reported pt feeling lightheaded and seeing floaters with standing up. I came to see the patient and she was lying in bed in no distress. She reports she was straining on the toilet for 30 min and only had a very small hard stool come out. She had orthostatics done which were negative. Her BP was borderline low--> gave 1L NS. Also advised continued enema and mag citrate po for severe constipation. Pt in no distress, smiling and pleasant, had a mild headache, +Right flank pain.
[2020-07-26] MEDS: LACTATED RINGER'S 1,000 ML IV SCH (04:28)
[2020-07-26] MEDS: cefTRIAXone SODIUM 1,000 MG in DEXTROSE 5% 50 ML IV SCH (05:47)
[2020-07-26] MEDS: KETOROLAC TROMETHAMINE 15 MG/ML VIAL IV PRN (05:49)
--- NOTE | 2020-07-26 08:07 | Urology Progress Note ---
Date of Service July 26, 2020 Assessment & Plan (1) Calculus of proximal right ureter: (2) Abdominal pain: (3) Renal colic on right side: (4) Constipation: 24 year-old female patient admitted s/p recent urologic procedure secondary to intractable abdominal/right-flank pain and constipation. -Patient s/p cystoscopy, right ureteroscopy, laser lithotripsy, and right stent placement with Dr. Alfaro on 07/22. -She remains afebrile. -Prior imaging with renal ultrasound with concern for possible residual distal right ureteral calculi/fragments. -Patient did pass stone fragment yesterday afternoon, sent for analysis. -Repeat KUB this AM reviewed - satisfactory positioning of the right ureteral stent with column of tiny ureteral stone fragments along the course of the distal stent. -No acute intervention indicated at this time, will order diet. -Continue to strain urine. -Discussed discharge plans with primary team, likely home tomorrow. -Will plan hydration, pain control, and continued observation. -Repeat KUB in AM and likely stent removal prior to discharge. -Expected clinical course reviewed with patient, all questions answered. -Will continue to follow while inpatient. Admission and Anticipated Discharge Date Admission Date: July 25, 2020 Subjective Patient s/p cystoscopy, right ureteroscopy, laser lithotripsy, and right stent placement with Dr. Alfaro on 07/22. Readmitted 07/25 for intractable abdominal/right flank pain with concern for constipation. Patient seen and examined this AM, she is feeling better overall. Does report minimal right-sided flank pain, rates 2 out of 10. Did pass stone fragment yesterday afternoon, she notes her mother measured fragment and was about 3-4 mm in size. Stone was sent for analysis, pending. Denies gross hematuria. Has mild discomfort with urination. Denies urinary frequency/urgency. Denies fevers or chills. Denies nausea or vomiting. Did have bowel movement yesterday, passing flatus. Has been NPO since midnight. KUB ordered for this AM. Tethered stent in place. Chart review: Afebrile Labs 07/25 - Wbc 10.01 Hgb 13.5 Creatinine 0.72 Urine culture pending. Patient on IV Ceftriaxone. KUB - IMPRESSION: Satisfactory positioning of the right ureteral stent. There is a column of tiny ureteral stone fragments along the course of the distal stent. Denies additional urologic concerns today. Review of Systems Constitutional: as per Subjective / HPI; no fever and no chills Gastrointestinal: as per Subjective / HPI; no nausea and no vomiting Genitourinary: as per Subjective / HPI Physical Exam Constitutional: well developed and well nourished; no acute distress and not ill appearing Respiratory: normal respiratory effort and able to speak in complete sentences; no respiratory distress and no audible wheezes Gastrointestinal (Abdomen): Inspection/Auscultation: abdomen normal to inspection; abdomen not distended Percussion/Palpation: abdomen soft; abdomen nontender and no guarding Psychiatric: Orientation: alert, oriented x 3 and cooperative Affect: euthymic affect Genitourinary: no CVA tenderness Results & Data ([facility]) Vital Signs (Past 12 Hours) Vital Signs Temp Pulse Resp BP Pulse Ox 07/25/20 22:51 36.8 C 63 15 117/69 97 PG Care Time/CCT Total # of Minutes Spent Total Time Spent with Patient: Total time spent is greater than 50% in coordination of care (as documented) at patient's floor/unit and/or counseling patient: Coding Level of Care Code 61419 Subseq Hosp Care Lvl 2 Diagnoses Calculus of proximal right ureter N20.1 Abdominal pain R10.84 Abdominal location: generalized Renal colic on right side N23 Constipation K59.00 Constipation type: unspecified constipation type (1) Abdominal pain Abdominal location: generalized Qualified Code(s): R10.84 - Generalized abdominal pain (2) Constipation Constipation type: unspecified constipation type Qualified Code(s): K59.00 - Constipation, unspecified
[2020-07-26] MEDS: DOCUSATE SODIUM/SENNA 50/8.6MG TAB PO SCH (09:59)
[2020-07-26] MEDS: POLYETHYLENE (MIRALAX) 17 GM PACK PO SCH (09:59)
--- NOTE | 2020-07-26 10:02 | XRay Report ---
KUB HISTORY: Follow up study in a patient with history of renal calculi with right ureteral stent f/u ri ght stones COMPARISON: KUB 07/25/2020, CT abdomen and pelvis 07/20/2020 FINDINGS: Gas pattern is nonobstructive. IUD of the mid pelvis. A right-sided ureteral stent appears to be in satisfactory positioning. The renal shadows are partially obscured by bowel gas. No definit e renal calculi are identified. There is a column of tiny stone fragments along the distal right uret eral stent. No pneumoperitoneum or pneumatosis. No fracture. IMPRESSION: Satisfactory positioning of the right ureteral stent. There is a column of tiny ureteral stone fragme nts along the course of the distal stent. ACT 112: Negative or not required by law. The above report was generated using voice recognition software. It may contain grammatical, syntax o r spelling errors. Electronically signed by: Osman Miguel M.D. 07/26/2020 10:01 AM
--- NOTE | 2020-07-26 12:04 | Hospitalist Progress Note ---
Date of Service July 26, 2020 Assessment & Plan (1) Abdominal pain: 24yo female with history of nephrolithiasis - recent 1.2cm stone s/p lithotripsy. Patient had been taking Tylenol and Ibuprofen at home for discomfort, however, was in significant pain. Was prescribed PO Toradol with minimal relief. She has ongoing flank pain as well as abdominal pain. Most likely secondary to recent procedure as well as constipation/gas pains. -Toradol increased to 30 mg IV q 6 hours PRN -Morphine 2mg IV q 4 hours PRN - increase as needed -Bowel regimen as below ?secondary to ureteral stent vs. retained stones (see below) (2) Calculus of proximal right ureter: S/P lithotripsy. Patient had been on Keflex outpatient. Denies fevers/chills -Continue straining urine -Ceftriaxone 1gm IV daily - continue perioperatively around stent removal -Continue Pyridium PRN -Toradol and Morphine PRN as above Appreciate urology consult. Planning on stent removal tomorrow. NPO after midnight (3) Constipation: -Golyetely 2000ml today -Colace BID PRN -Dulcolax suppository PRN -IVF and electrolyte repletion -Encourage ambulation -Will check KUB to assess for obstructive bowel gas pattern F/E/N - LR at 125mL/hr x 2 liters, electrolytes WNL, Regular diet as tolerated Ppx - Low risk for DVT. IVF and ambulation encouraged Code - Full Dispo - Observation to medical Admission and Anticipated Discharge Date Admission Date: July 25, 2020 Subjective Continued pain today. Occurring since stent placement. Continue same waves. Stabbing. Right side of abdomen and right flank. Severity 10. Toradol helping but trying to avoid morphine due to constipation. Review of Systems Review of Systems: All systems reviewed & are unremarkable except as noted in HPI & below Physical Exam Constitutional: WD/WN, vitals as above Respiratory: normal respiratory effort, lungs clear to auscultation Cardiovascular: RRR, no murmur, no edema Gastrointestinal (Abdomen): Percussion/Palpation: + abdomen tender (Right sided) Psychiatric: A+Ox3, euthymic affect Genitourinary: + CVA tenderness (right) Results & Data Results & Data ([facility]) Vital Signs (Past 12 Hours) Vital Signs Temp Pulse Resp BP Pulse Ox 07/26/20 08:17 36.7 C 53 L 16 109/69 96 PG Care Time/CCT Total # of Minutes Spent Total Time Spent with Patient: Total time spent is greater than 50% in coordination of care (as documented) at patient's floor/unit and/or counseling patient: Coding Level of Care Code 72206 Subseq Obs Care Lvl 2 Diagnoses Abdominal pain R10.84 Abdominal location: generalized Calculus of proximal right ureter N20.1 Constipation K59.00 Constipation type: unspecified constipation type (1) Abdominal pain Abdominal location: generalized Qualified Code(s): R10.84 - Generalized abdominal pain (2) Constipation Constipation type: unspecified constipation type Qualified Code(s): K59.00 - Constipation, unspecified
[2020-07-26] MEDS: KETOROLAC 30 MG/ML VIAL IV PRN (12:13)
[2020-07-26] MEDS ORDERED: LACTATED RINGER'S 1,000 ML IV SCH (12:15)
[2020-07-26] MEDS: SODIUM CHLOR 0.45% + 20MEQ KCL 20 MEQ/1,000 ML BAG IV SCH ×2 (12:51→19:27)
[2020-07-26] MEDS ORDERED: LAVAGE SOLUTION 4000ML PO SCH (16:00)
[2020-07-27] MEDS: SODIUM CHLOR 0.45% + 20MEQ KCL 20 MEQ/1,000 ML BAG IV SCH ×2 (02:01→08:11)
[2020-07-27] MEDS: cefTRIAXone SODIUM 1,000 MG in DEXTROSE 5% 50 ML IV SCH (05:49)
[2020-07-27] MEDS: KETOROLAC 30 MG/ML VIAL IV PRN ×2 (05:55→12:21)
[2020-07-27] MEDS: POLYETHYLENE (MIRALAX) 17 GM PACK PO SCH (08:11)
[2020-07-27] MEDS: DOCUSATE SODIUM/SENNA 50/8.6MG TAB PO SCH (08:11)
--- NOTE | 2020-07-27 08:40 | XRay Report ---
KUB HISTORY: Follow up study in a patient with right ureteral calculi Right distal calculi, assess for p assage COMPARISON: KUB 07/26/2020 FINDINGS: Nonobstructive bowel gas pattern. Gas-filled loops of large and small bowel. IUD of the mid pelvis. Satisfactory positioning of the right ureteral stent. Numerous fragmented calculi are again noted projecting over the distal portion of the stent. The largest column of calculi measures up to 10 mm. No renal calculi are identified. No pneumoperitoneum or pneumatosis. No fracture. IMPRESSION: Satisfactory positioning of the right ureteral stent. Numerous tiny fragmented calculi are again note d projecting over the distal portion of the stent. ACT 112: Negative or not required by law. The above report was generated using voice recognition software. It may contain grammatical, syntax o r spelling errors. Electronically signed by: Osman Miguel M.D. 07/27/2020 8:39 AM
--- NOTE | 2020-07-27 10:11 | Urology Progress Note ---
Date of Service July 27, 2020 Assessment & Plan (1) Calculus of proximal right ureter: (2) Abdominal pain: (3) Renal colic on right side: (4) Constipation: 24 year-old female patient admitted s/p recent urologic procedure secondary to intractable abdominal/right-flank pain and constipation. -Patient s/p cystoscopy, right ureteroscopy, laser lithotripsy, and right stent placement with Dr. Alfaro on 07/22. -Plan of care reviewed with Dr. Alfaro. -She remains afebrile. -Has passed sand-like debris since last exam. -Repeat KUB this AM reviewed - numerous tiny fragmented calculi are again noted projecting over the distal portion of the stent. -Tethered stent removed today without difficulty, patient tolerated procedure well. -Diet advanced. -Continue hydration, pain control, and supportive care. -Okay to discharge home from perspective presuming she continues to feel we ll. -Expected clinical course reviewed with patient, all questions answered. -Outpatient follow-up with urology service scheduled on 08/06/20, recommend keeping this appointment. Thank you for allowing us to participate in the acute care of Ms. Beasley. Please reconsult us with additional questions, concerns or changes in patient status. Admission and Anticipated Discharge Date Admission Date: July 25, 2020 Subjective Patient s/p cystoscopy, right ureteroscopy, laser lithotripsy, and right stent placement with Dr. Alfaro on 07/22. Readmitted 07/25 for intractable abdominal/right flank pain with concern for constipation/stent pain. Patient seen and examined this AM, feeling well. Currently denies pain. Did have increase in pain around 5:00 this am, located in right flank/abdomen. Pain tolerable with IV Toradol. States she has passed sand-like debris intermittently since yesterday. Denies gross hematuria. Has mild discomfort with urination. Denies urinary frequency/urgency. Denies fevers or chills. Denies nausea or vomiting. Has had multiple bowel movements on current bowel regimen. Has been NPO since midnight. Tethered stent in place. Chart review: Afebrile Labs 07/25 - Wbc 10.01 Hgb 13.5 Creatinine 0.72 Preliminary urine culture no growth. Patient on IV Ceftriaxone. KUB - IMPRESSION: Satisfactory positioning of the right ureteral stent. Numerous tiny fragmented calculi are again noted projecting over the distal portion of the stent. Denies additional urologic concerns today. Review of Systems Constitutional: as per Subjective / HPI; no fever and no chills Gastrointestinal: as per Subjective / HPI; no nausea and no vomiting Genitourinary: as per Subjective / HPI Physical Exam Constitutional: well developed and well nourished; no acute distress and not ill appearing Respiratory: normal respiratory effort and able to speak in complete sentences; no respiratory distress and no audible wheezes Gastrointestinal (Abdomen): Inspection/Auscultation: abdomen normal to inspection; abdomen not distended Psychiatric: Orientation: alert, oriented x 3 and cooperative Affect: euthymic affect Genitourinary: no CVA tenderness Tethered stent removed at bedside at 12:45 pm without difficulty. Patient tolerated very well. Reported minimal discomfort with removal. Initial discomfort resolved after a brief period of time. Results & Data ([facility]) Vital Signs (Past 12 Hours) Vital Signs Temp Pulse Resp BP Pulse Ox 07/27/20 07:47 36.5 C 64 16 108/68 97 07/26/20 23:00 36.6 C 70 16 121/77 95 PG Care Time/CCT Total # of Minutes Spent Total Time Spent with Patient: Total time spent is greater than 50% in coordination of care (as documented) at patient's floor/unit and/or counseling patient: Coding Level of Care Code 21220 Subseq Hosp Care Lvl 2 Diagnoses Calculus of proximal right ureter N20.1 Abdominal pain R10.84 Abdominal location: generalized Renal colic on right side N23 Constipation K59.00 Constipation type: unspecified constipation type (1) Abdominal pain Abdominal location: generalized Qualified Code(s): R10.84 - Generalized abdominal pain (2) Constipation Constipation type: unspecified constipation type Qualified Code(s): K59.00 - Constipation, unspecified
--- NOTE | 2020-07-28 10:06 | Discharge Summary ---
Date of Service July 27, 2020 Admission HPI Per Admitting Provider Bethany Beasley is a pleasant 24yo female with history of 1.2cm renal stone in proximal right ureter/UPJ with hydronephrosis s/p lithotripsy with stent placement performed on 07/22/20. Procedure was well tolerated with no complications identified. Patient was discharged home on 07/22/20. She returns today with severe intermittent discomfort - right flank as well as episodes of severe, cramping abdominal pain. She has been urinating without difficulty and straining her urine as instructed. She has been unable to have a bowel movement since discharge. She is passing gas but infrequently. She has had some nausea as well, no vomiting. No additional complaints at this time. She denies fever. Patient had a wave of abdominal pain during my encounter that lasted appx 2 minutes - abdomen became tight and tender. Patient in significant discomfort. ER Course: Ceftriaxone, Toradol 10mg, Morphine 4mg + 2mg, Zofran 4mg, NSS Admission Exam Per Admitting Provider General: patient resting comfortably, NAD, non-toxic in appearance, AA&O x 4 Skin: warm, dry, intact, no rashes or lesions HEENT: NC/AT, PERRL, EOMI, anicteric sclera, conjunctiva without injection, external ear normal to inspection and nontender, nares patent, moist mucus membranes, dentition intact, no oropharyngeal lesions, neck supple, trachea midline, no LAD, no thyromegaly, no JVD Heart: +S1/S2, regular, no m/r/g Lungs: equal air entry bilaterally, no rales/rhonchi/wheezes Abd: +BS, soft, diffusely tender without rebound, some voluntary guarding, ND, no masses/organomegaly/ascites Ext: warm, 2+ pulses in UE/LE bilaterally, no clubbing/cyanosis or edema Neuro: nonfocal, patient AA&O x 4, speech intact, no facial droop, moving all extremities on command with equal strength 5/5 Principal Diagnosis Pain from residual stones and ureteral stent Discharge Exam Constitutional WD/WN, vitals as above Respiratory normal respiratory effort, lungs clear to auscultation Cardiovascular RRR, no murmur, no edema Gastrointestinal (Abdomen) Percussion/Palpation: + abdomen tender (Right sided) Psychiatric A+Ox3, euthymic affect Genitourinary + CVA tenderness (right) Discharge Data Allergies Allergy/AdvReac Type Severity Reaction Status Date / Time No Known Allergies Allergy Unverified 07/25/20 07:00 Consultations 07/25/20 05:56 ED Decision to Admit Stat 07/25/20 09:10 Consult Urology Routine Ordered Studies 07/25/20 04:35 US renal/blad retro comp Urgent Hospital Course (1) Abdominal pain: Bethany Beasley was observed at [facility] from July 25- 2020 due to right flank and abdominal pain following stent insertion. This improved with intravenous fluids, Toradol and stent removal. Urine culture was negative for infection and antibiotics have been discontinued. She will follow up with urology as below. (2) Calculus of proximal right ureter: (3) Constipation: Total Time Total Time Spent Total Time Spent (In Minutes): 35 Total Time Includes: Examination of the Patient, Discharge Planning, Medication Reconciliation and Communication With Other Providers Discharge Plan Discharge Items Patient Disposition: Home - Self-Care Reason For Visit: PAIN,NAUSEA Discharge Diagnosis: Pain from residual stones and ureteral stent Condition on Discharge: Good Activity: Resume your previous activity Non-emergency contact: Urologist Call non-emergency contact if: you have any medication questions, your symptoms worsen and your temperature is above 101 Follow-up/Referrals: Ingris Sethi PA-C [Physician [employer]] - 08/06/20 9:00 am PCP,YARIEL [Primary Care Provider] - Diet: Regular Addtl Attending Provider Instructions: You were admitted at [facility] from July 25-2020 due to right flank and abdominal pain following stent insertion. This improved with intravenous fluids, Toradol (NSAID) and stent removal. Urine culture was negative for infection and antibiotics have been discontinued. Please follow up with urology as above. Pending Studies at Discharge: Yes Stand-Alone Forms: [facility], Smoking Cessation Medications and DC Order Prescriptions: New ibuprofen 200 mg tablet 400 mg PO Q4H MDD 1600mg PRN (Reason: pain) Qty: 30 RF: 0 docusate sodium [Colace] 100 mg capsule 100 mg PO BID PRN (Reason: constipation) Qty: 30 RF: 0 Continued ketorolac 10 mg tablet 10 mg PO BID PRN (Reason: pain) RF: 0 Mirena 20 mcg/24 hours (6 yrs) 52 mg Intrauterine Device 20 mcg INTRAUTERINE CONT RF: 0 acetaminophen [Tylenol Extra Strength] 500 mg Tablet 1,000 mg PO Q6H PRN (Reason: Pain) RF: 0 Multivitamin Gummies 200 mcg Tablet,Chewable 1 tab PO DAILY RF: 0 Changed oxybutynin chloride 5 mg tablet extended release 24hr 5 mg PO DAILY PRN (Reason: bladder spasm) Qty: 7 RF: 0 Discontinued cephalexin 500 mg capsule 500 mg PO TID 4 Days Qty: 12 RF: 0 Discharge Orders: Discharge Order (Routine); Ordered 07/27/20 Ordered By: Maxwell Melgoza Admission Data Admit Date/Time: 07/25/20 06:31 Attending Provider: Maxwell Melgoza Admit Provider: Sarah Montoya Primary Care Provider: PCP,NO Other Providers: Sarah Montoya ; Sammy Jaramillo. Other Interventions: Discharge Summary Assessment (RN) Last Done: 07/27/20 16:44 Coding Level of Care Code 32208 OBS Care - Discharge Diagnoses Abdominal pain R10.84 Abdominal location: generalized Calculus of proximal right ureter N20.1 Constipation K59.00 Constipation type: unspecified constipation type
[2020-07-29 12:49] LABS: Component 2 DNR; Source KIDNEY
== END 2020-07-27 17:17 | disposition home or self-care (01) ==
LOC: ED 04:29 → 3W 04:29 → SUATTDRO 06:31 → 3W 10:37
DX: N20.1 Calculus of ureter; Z98.890 Other specified postprocedural states; Z79.899 Other long term (current) drug therapy; K59.00 Constipation, unspecified